=== PATIENT | female | born 1955 | race Caucasian/White ===

== ENCOUNTER 2017-08-26 11:04 | Inpatient (IN) | payer OTHER ==
--- NOTE | 2017-08-26 12:09 | PDOC ---
History of Present Illness - General Chief Complaint: Pain Stated Complaint: ABD PAIN Time Seen by Provider: 08/26/17 12:01 History Source: Patient Exam Limitations: No Limitations - History of Present Illness Initial Comments: 08/26/17 16:17 62M with pmh of lupus, who presents to the ED with abdominal pain and nausea since yesterday. Patient was on a cruise ship up to this morning, where she had a caesar salad yesterday, and began to feel nauseous several hours later. also had some of that salad but isn't sick. She reports diffuse abdominal pain, worse epigastrically. She reports dry heaving, but no vomiting, diarrhea, constipation. Patient has documents from the ship's urgent care, including basic labs and CXR which demonstrated enlarged loop, with 2 air fluid levels. At the time patient was given Toradol, Tylenol, and fluids, with improvement of symptoms. Past History - Past Medical History Allergies/Adverse Reactions: Allergies Allergy/AdvReac Type Severity Reaction Status Date / Time chlorpheniramine Allergy Verified 08/26/17 11:11 [From Ornade] fish derived Allergy Verified 08/26/17 11:11 morphine Allergy Verified 08/26/17 11:11 Penicillins Allergy Verified 08/26/17 11:11 phenylpropanolamine Allergy Verified 08/26/17 11:11 [From Ornade] Sulfa (Sulfonamide Allergy Verified 08/26/17 11:11 Antibiotics) sulfamethoxazole Allergy Verified 08/26/17 11:11 [From Bactrim] trimethoprim [From Bactrim] Allergy Verified 08/26/17 11:11 Home Medications: Ambulatory Orders Hydroxychloroquine Sulfate [Plaquenil] 100 mg PO BID 08/26/17 Metformin HCl 850 mg PO BID 08/26/17 Montelukast Sodium [Singulair] 10 mg PO HS 08/26/17 COPD: No Diabetes: Yes Other medical history: S.C LUPUS, DJD,OA - Surgical History Abdominal Surgery: Yes (MESH) Appendectomy: Yes Cholecystectomy: Yes - Suicide/Smoking/Psychosocial Hx Smoking History: Never smoked Information on smoking cessation initiated: No Hx Alcohol Use: No Drug/Substance Use Hx: No Substance Use Type: None Review of Systems - Review of Systems Able to Perform ROS?: Yes Is the patient limited Welsh proficient: No Constitutional: Yes: See HPI HEENTM: No: Symptoms Reported Respiratory: No: Symptoms reported Cardiac (ROS): No: Symptoms Reported ABD/GI: Yes: See HPI : No: Symptoms Reported Musculoskeletal: No: Symptoms Reported Integumentary: No: Symptoms Reported Neurological: No: Symptoms reported All Other Systems: Reviewed and Negative *Physical Exam - Vital Signs Last Vital Signs Temp Pulse Resp BP Pulse Ox 98.2 F 64 18 126/71 100 08/26/17 11:11 08/26/17 11:11 08/26/17 11:11 08/26/17 11:11 08/26/17 11:11 - Physical Exam General Appearance: Yes: Nourished, Appropriately Dressed. No: Apparent Distress HEENT: positive: EOMI, MARIA DE JESUS, Normal ENT Inspection Respiratory/Chest: positive: Lungs Clear, Normal Breath Sounds. negative: Chest Tender, Respiratory Distress Cardiovascular: positive: Regular Rhythm, Regular Rate, S1, S2 Gastrointestinal/Abdominal: positive: Tender (epigastrium, paraumbilicus), Soft , Decreased BS Musculoskeletal: positive: Normal Inspection. negative: CVA Tenderness Extremity: positive: Normal Capillary Refill, Normal Inspection, Normal Range of Motion Integumentary: positive: Normal Color, Dry, Warm Neurologic: positive: Fully Oriented, Alert, Normal Mood/Affect ED Treatment Course - LABORATORY CBC & Chemistry Diagram: 08/26/17 12:34 08/26/17 12:34 Medical Decision Making - Medical Decision Making 08/26/17 16:49 62M with pmh of lupus, who presents to the ED with abdominal pain and nausea since yesterday. Basic labs negative, CT abdomen with PO and IV contrast. 08/26/17 16:53 CT Abdomen read: A distal small bowel obstruction is noted with an apparent transition zone within the right lower quadrant. There is associated small amount of mesenteric fluid accumulation as well as a small amount of perihepatic free fluid. A small amount of localized areas seen interposed between the left hepatic lobe and anterior abdominal wall probably representing a bowel loop, and less likely a small localized area of pneumoperitoneum. If clinically indicated supplemental CT evaluation may be performed with the patient in a decubitus position (without additional intravenous/oral contrast) to definitively distinguish between these possibilities on a radiologic basis. Surgical mesh is seen along the anterior abdominal wall centered along the midline. A moderate hiatal hernia is noted which appears to be paraesophageal in type. When the patient's clinical condition permits correlation with an upper gastrointestinal series is suggested. Status post cholecystectomy. There is slight common bile duct dilatation which may be on a physiologic basis. Clinical/laboratory correlation is suggested. Status post hysterectomy. A nonspecific 0.8 cm right hepatic lobe hypodense focus is seen. If prior studies are not available at a different facility for direct comparison correlation with contrast-enhanced MRI is suggested versus 3 month follow-up MRI/CT. 2 cm duodenal diverticulum.. Patient updated. Placed call to surgeon global position system technician Dr. COLEMAN. 08/26/17 17:53 Patient to be admitted to hospitalist to med/surg. . 08/26/17 18:05 Still no call back from Dr. Coleman. Will try a second time now 08/26/17 18:[address] Coleman sent. 08/26/17 19:11 Patient signed out to Dr. Null *DC/Admit/Observation/Transfer Diagnosis at time of Disposition: Small bowel obstruction - Discharge Dispostion Admit: Yes - Referrals - Patient Instructions - Post Discharge Activity
[2017-08-26] MEDS ORDERED: SODIUM CHLORIDE 1,000 ML IV STA (12:30)
[2017-08-26] MEDS ORDERED: ONDANSETRON 4 MG/2 ML VIAL IVPUSH ONE (12:56)
[2017-08-26] MEDS ORDERED: FAMOTIDINE IV 20 MG/12 ML VIAL IVPUSH ONE (12:57)
[2017-08-26] MEDS ORDERED: FAMOTIDINE 20 MG/50 ML IVPB 20 MG/50 ML MG IVPB ONE (13:07)
[2017-08-26] MEDS ORDERED: ONDANSETRON 4 MG/2 ML VIAL ONE (13:07)
--- NOTE | 2017-08-26 13:08 | PDOC ---
Attending Attestation - HPI HPI: 08/26/17 13:08 The patient is a 62 year old female, with a significant past medical history of lupus, who presents to the emergency department with abdominal pain and nausea since yesterday. The patient reports she was on a cruise yesterday, where she had a caesar salad, and began to feel nauseous several hours later. Patient reports her had the same salad, but was feeling ok. She reports diffuse abdominal pain, worse epigastrically. She reports dry heaving, but no vomiting, diarrhea, constipation. On the cruise, patient reports she had an X- Ray done, which demonstrated enlarged loop, with 2 air fluid levels. At the time patient was given Toradol, Tylenol, and fluids, with improvement of symptoms. Allergies: Per nursing notes. Past surgical History: Hernia repairs, Cholecystectomy - Physicial Exam PE: 08/26/17 13:09 GENERAL: Awake, alert, and fully oriented, in no acute distress HEAD: No signs of trauma EYES: PERRLA, EOMI, sclera anicteric, conjunctiva clear ENT: Auricles normal inspection, hearing grossly normal, nares patent. Moist mucosa NECK: Normal ROM, supple, no lymphadenopathy, JVD, or masses LUNGS: Breath sounds equal, clear to auscultation bilaterally. No wheezes, and no crackles HEART: Regular rate and rhythm, normal S1 and S2, no murmurs, rubs or gallops ABDOMEN: Mild diffuse tenderness to palpation, tenderness worse epigastrically. Soft, normoactive bowel sounds. No guarding, no rebound. No masses EXTREMITIES: Normal range of motion, no edema. No clubbing or cyanosis. No cords, erythema, or tenderness. DP/PT pulses 2+ and symmetric. NEUROLOGICAL: Moves all extremities. Normal speech, normal gait SKIN: Warm, Dry, normal turgor, no rashes or lesions noted. - Medical Decision Making 08/26/17 13:09 Documentation prepared by Jimy Ovalle, acting as medical manager for Belinda Bhatia MD. <Jimy Ovalle - Last Filed: 08/26/17 16:53> - Resident Resident Name: Albert Jimenez - ED Attending Attestation I have performed the following: I have examined & evaluated the patient, The case was reviewed & discussed with the resident, I agree w/resident's findings & plan - Medical Decision Making 08/26/17 17:22 62 yo F with abd pain nausea, and vomiting following cruise, concerns for air fluid levels on xray from cruise, prior abd surgeries. differential viral ge, food poisoning. sbo, other infection such as uti or pyelonephritis. plan ivf, ct a/p labs ua pain control ivf pt ct with bowel obstruction, ng tube placed. consulted. will admit for sbo. <Belinda Bhatia - Last Filed: 08/26/17 19:25> Heart Score/ECG Review #1 General ECG Interpretation: Sinus Rhythm, Normal Rate (sinus bradycardia 53 bpm. Twi III.), Normal Intervals, No acute ischemic changes <Belinda Bhatia - Last Filed: 08/26/17 19:25> ED Treatment Course - LABORATORY CBC & Chemistry Diagram: 08/26/17 12:34 08/26/17 12:34 - ADDITIONAL ORDERS Additional order review: Laboratory Results 08/26/17 08/26/17 08/26/17 13:37 12:57 12:34 Sodium Potassium Chloride Carbon Dioxide Anion Gap BUN Creatinine Creat Clearance w eGFR Random Glucose Lactic Acid 1.9 Calcium Total Bilirubin AST ALT Alkaline Phosphatase Total Protein Albumin Lipase Cancelled Urine Color Yellow Urine Appearance Clear Urine pH 5.0 Ur Specific [place] 1.029 Urine Protein Negative Urine Glucose (UA) 1+ H Urine Ketones 1+ H Urine Blood Negative Urine Nitrite Negative Urine Bilirubin Negative Urine Urobilinogen Negative Ur Leukocyte Esterase Negative 08/26/17 12:34 Sodium 137 Potassium 4.3 Chloride 101 Carbon Dioxide 24 Anion Gap 12 BUN 15 Creatinine 0.7 Creat Clearance w eGFR > 60 Random Glucose 148 H Lactic Acid Calcium 9.3 Total Bilirubin 0.6 AST 19 ALT 19 Alkaline Phosphatase 51 Total Protein 7.3 Albumin 4.2 Lipase 96 Urine Color Urine Appearance Urine pH Ur Specific [place] Urine Protein Urine Glucose (UA) Urine Ketones Urine Blood Urine Nitrite Urine Bilirubin Urine Urobilinogen Ur Leukocyte Esterase 08/26/17 12:34 RBC 4.57 MCV 88.7 MCHC 34.1 RDW 13.1 MPV 8.6 Neutrophils % 90.9 H Lymphocytes % 5.4 L Monocytes % 3.6 L Eosinophils % 0.0 Basophils % 0.1 - RADIOLOGY Radiograph Interpretation: 08/26/17 16:53 EXAM: CT Abdomen and Pelvis INTERPRETED BY: Dr. Guerin REVIEWED BY: Dr. Bhatia IMPRESSION: A distal small bowel obstruction is noted with an apparent transition zone within the right lower quadrant. There is associated small amount of mesenteric fluid accumulation as well as a small amount of perihepatic free fluid. A small amount of localized areas seen interposed between the left hepatic love and anterior abdominal wall probably representing a bowel loop, and less likely a small localized area of pneumperitoneum. If clinically indicated supplemental CT evaluation may be performed with the patient christy decubitus position (without additional intravenous/oral contract) to definitively distinguish between these possibilities on a radiologic basis. Surgical mesh is seen along the anterior abdominal wall centered along the midline. A moderate hiatal hernia is noted which appears to be paraesophageal in type. When the patient's clinical conditiohn permits correlation with an upper gastrointestinal series is suggested. Status post cholecystectomy. There is slight common bile duct dilation which may be on a physiologic basis. Clinical/laboratory correlation is suggested. S/p hysterectomy. A nonspecific 0.8 cm right hepatic lobe hypodense focus is seen. If prior studies are not available at a different facility for direct comparison correlation with contrast-enhanced MRI is suggested versus 3 month follow-up MRI/CT. 2 cm duodenal diverticulum. - Medications Given in the ED: ED Medications Discontinued Medications Generic Name Dose Route Start Last Admin Trade Name Freq PRN Reason Stop Dose Admin Sodium Chloride 1,000 mls @ 1,000 mls/hr 08/26/17 12:30 08/26/17 13:16 Normal Saline - IV 08/26/17 13:29 1,000 mls/hr ASDIR STA Administration Famotidine 20 mg in 12 mls @ 144 mls/hr 08/26/17 12:57 08/26/17 13:17 Pepcid 20 Mg/12 Ml Push IVPUSH 08/26/17 13:01 144 mls/hr ONCE ONE Administration Ketorolac Tromethamine 15 mg 08/26/17 15:25 08/26/17 15:41 Toradol Injection - IVPUSH 08/26/17 15:26 15 mg ONCE ONE Administration Ondansetron HCl 4 mg 08/26/17 12:56 08/26/17 13:16 Zofran Injection IVPUSH 08/26/17 12:57 4 mg ONCE ONE Administration <Ovalle,Giomilsy - Last Filed: 08/26/17 16:53> - LABORATORY CBC & Chemistry Diagram: 08/26/17 12:34 08/26/17 12:34 <Belinda Bhatia - Last Filed: 08/26/17 19:25>
[2017-08-26 13:24] LABS: BASO % 0.1 % (0-2.0); HEMATOCRIT 40.6 % (32.4-45.2); HEMOGLOBIN 13.8 GM/dL (10.7-15.3); LYMPH % 5.4 % (8-40); MCH 30.2 pg (25.7-33.7); MCHC 34.1 g/dl (32.0-36.0); MEAN CELL VOLUME 88.7 fl (80-96); MEAN PLT VOLUME 8.6 fl (7.5-11.1); MONO % 3.6 % (3.8-10.2); NEUT % 90.9 % (42.8-82.8); PLATELET COUNT 234 K/MM3 (134-434); RBC 4.57 M/mm3 (3.60-5.2); RDW 13.1 % (11.6-15.6); WHITE BLOOD COUNT 10.5 K/mm3 (4.0-10.0)
[2017-08-26 13:54] LABS: ALBUMIN 4.2 g/dl (3.4-5.0); ALK PHOS 51 U/L (45-117); ANION GAP 12 (8-16); BILIRUBIN,TOTAL 0.6 mg/dL (0.2-1.0); BLOOD UREA NITROGEN 15 mg/dL (7-18); CALCIUM 9.3 mg/dL (8.5-10.1); CHLORIDE 101 mmol/L (98-107); CO2 24 mmol/L (21-32); CREATININE 0.7 mg/dL (0.55-1.02); GLUCOSE,RANDOM 148 mg/dL (74-106); POTASSIUM 4.3 mmol/L (3.5-5.1); SGOT/AST 19 U/L (15-37); SGPT/ALT 19 U/L (12-78); SODIUM 137 mmol/L (136-145); TOT PROT 7.3 g/dl (6.4-8.2)
[2017-08-26 14:03] LABS: URINE APPEARANCE CLEAR; URINE BILIRUBIN NEGATIVE (<2.0 mg/dL); URINE COLOR YELLOW; URINE GLUCOSE (UA) 1+ (NEGATIVE); URINE KETONE 1+ (NEGATIVE); URINE LEUK ESTERASE NEGATIVE (NEGATIVE); URINE NITRITE NEGATIVE (NEGATIVE); URINE PROTEIN NEGATIVE (NEGATIVE); URINE UROBILINOGEN NEGATIVE mg/dL (0.2-1.0)
[2017-08-26 14:08] LABS: LIPASE 96 U/L (73-393)
[2017-08-26] MEDS ORDERED: METOCLOPRAMIDE HCL INJECTION 10 MG/2 ML VIAL ONE (15:19)
[2017-08-26] MEDS ORDERED: KETOROLAC TROMETHAMINE 15 MG/ML VIAL IVPUSH ONE (15:25)
[2017-08-26] MEDS ORDERED: KETOROLAC TROMETHAMINE 15 MG/ML VIAL ONE (15:31)
--- NOTE | 2017-08-26 18:12 | HP ---
CHIEF COMPLAINT: " Abdominal pain, nausea " PCP: At [place]. HISTORY OF PRESENT ILLNESS: Patient is a 62 year old female presented to the ED with the chief complaint of " Abdominal pain, nausea ". As per the patient, she was on a 5 day cruise to [facility] from [facility]. Last night at around 8:30 pm, 45 mins after she ate dinner ( ribs, mashed potatoes, broccoli), she started having severe abdominal pain, diffusely located, 10/10, cramping in nature, non radiating, associated with nausea and dry heaves. She was seen by the doctor in the ship who did 2 abdominal x-rays, gave her toradol which didn't help. This morning patient landed in [facility] and came to the ED for further evaluation and treatment. Patient had few vomiting episodes in the ED, small in amount, containing water. Denies chest pain, sob, cough, palpitation, headache, LOC, constipation, diarrhoea. Last Bowel movement yesterday. Hasn't passed flatus today. Bladder habit normal. Sleep/Appetite normal prior to her illness. ER course was notable for: (1) Afebrile, hemodynamically stable (2) Abdominal/Pelvis CT: Distal SBO in the RLQ; surgical mesh, moderate hiatal hernia, 0.8 cm hepatic lobe hypodense area. (3) 1L NS, Famotidine, Ketorolac, Zofran, NG tube placed in the ED Recent Travel: Lives in [place], came to [facility] for vacation. PAST MEDICAL HISTORY: Subcutaneous lupus, steroid induced DM, degenerative disc (C3-C5), osteoarthritis, connective tissue disorder, rosacea PAST SURGICAL HISTORY: Cholecystectomy, Bladder suspension surgery, Hernia repair 5 times-last hernia repair was 5 yrs ago , right knee scoped. Social History: Smoking: Denies Alcohol: Occasional, last drink was yesterday. Drugs: Denies Family History: Non contributory Allergies chlorpheniramine [From Ornade] Allergy (Verified 08/26/17 11:11) fish derived Allergy (Verified 08/26/17 11:11) morphine Allergy (Verified 08/26/17 11:11) Penicillins Allergy (Verified 08/26/17 11:11) phenylpropanolamine [From Ornade] Allergy (Verified 08/26/17 11:11) Sulfa (Sulfonamide Antibiotics) Allergy (Verified 08/26/17 11:11) sulfamethoxazole [From Bactrim] Allergy (Verified 08/26/17 11:11) trimethoprim [From Bactrim] Allergy (Verified 08/26/17 11:11) HOME MEDICATIONS: Home Medications Medication Instructions Recorded Hydroxychloroquine Sulfate 100 mg PO BID 08/26/17 [Plaquenil] Metformin HCl 850 mg PO BID 08/26/17 Montelukast Sodium [Singulair] 10 mg PO HS 08/26/17 REVIEW OF SYSTEMS CONSTITUTIONAL: Absent: fever, chills, diaphoresis, generalized weakness, malaise, loss of appetite, weight change HEENT: Absent: rhinorrhea, nasal congestion, throat pain, throat swelling, difficulty swallowing, mouth swelling, ear pain, eye pain, visual changes CARDIOVASCULAR: Absent: chest pain, syncope, palpitations, irregular heart rate, lightheadedness , peripheral edema RESPIRATORY: Absent: cough, shortness of breath, dyspnea with exertion, orthopnea, wheezing, stridor, hemoptysis GASTROINTESTINAL: Present: abdominal pain, abdominal distension, nausea, vomiting, Absent: diarrhea, constipation, melena, hematochezia GENITOURINARY: Absent: dysuria, frequency, urgency, hesitancy, hematuria, flank pain, genital pain MUSCULOSKELETAL: Absent: myalgia, arthralgia, joint swelling, back pain, neck pain SKIN: Absent: rash, itching, pallor HEMATOLOGIC/IMMUNOLOGIC: Absent: easy bleeding, easy bruising, lymphadenopathy, frequent infections ENDOCRINE: Absent: unexplained weight gain, unexplained weight loss, heat intolerance, cold intolerance NEUROLOGIC: Absent: headache, focal weakness or paresthesias, dizziness, unsteady gait, seizure, mental status changes, bladder or bowel incontinence PSYCHIATRIC: Absent: anxiety, depression, suicidal or homicidal ideation, hallucinations. PHYSICAL EXAMINATION Vital Signs - 24 hr 08/26/17 08/26/17 11:11 15:42 Temperature 98.2 F Pulse Rate 64 Pulse Rate [ 56 L Radial] Respiratory 18 22 Rate Blood Pressure 126/71 Blood Pressure 121/82 [Left Arm] O2 Sat by Pulse 100 100 Oximetry (%) GENERAL: Patient is lying comfortably in bed, Awake, alert, and fully oriented, in no acute distress, NG tube placed. HEAD: Normal with no signs of trauma. EYES: EOM intact, no pallor or icterus. EARS, NOSE, THROAT: Ears normal. Dry mucous membranes. NECK: Supple. LUNGS: Breath sounds equal, clear to auscultation bilaterally. No wheezes, and no crackles. No accessory muscle use. HEART: Regular rate and rhythm, normal S1 and S2 without murmur, rub or gallop. ABDOMEN: Soft, tenderness in the LLQ, suprapubic area, not distended, hyperactive bowel sounds, No hepatomegaly or splenomegaly. MUSCULOSKELETAL: Normal range of motion at all joints. No bony deformities or tenderness. No CVA tenderness. UPPER EXTREMITIES: 2+ pulses, warm, well-perfused. No cyanosis. No clubbing. No peripheral edema. LOWER EXTREMITIES: 2+ pulses, warm, well-perfused. No calf tenderness. No peripheral edema. NEUROLOGICAL: NO facial droop, power 5/5 in all extremities. Normal speech. Gait not observed. PSYCHIATRIC: Cooperative. Good eye contact. Appropriate mood and affect. SKIN: Flushed skin +, Warm, dry, normal turgor, no rashes or lesions noted, normal capillary refill. Laboratory Results - last 24 hr 08/26/17 08/26/17 08/26/17 12:34 12:34 12:34 WBC 10.5 H RBC 4.57 Hgb 13.8 Hct 40.6 MCV 88.7 MCH 30.2 MCHC 34.1 RDW 13.1 Plt Count 234 MPV 8.6 Neutrophils % 90.9 H Lymphocytes % 5.4 L Monocytes % 3.6 L Eosinophils % 0.0 Basophils % 0.1 Sodium 137 Potassium 4.3 Chloride 101 Carbon Dioxide 24 Anion Gap 12 BUN 15 Creatinine 0.7 Creat Clearance w eGFR > 60 Random Glucose 148 H Lactic Acid 1.9 Calcium 9.3 Total Bilirubin 0.6 AST 19 ALT 19 Alkaline Phosphatase 51 Total Protein 7.3 Albumin 4.2 Lipase 96 Urine Color Urine Appearance Urine pH Ur Specific [place] Urine Protein Urine Glucose (UA) Urine Ketones Urine Blood Urine Nitrite Urine Bilirubin Urine Urobilinogen Ur Leukocyte Esterase 08/26/17 08/26/17 12:57 13:37 WBC RBC Hgb Hct MCV MCH MCHC RDW Plt Count MPV Neutrophils % Lymphocytes % Monocytes % Eosinophils % Basophils % Sodium Potassium Chloride Carbon Dioxide Anion Gap BUN Creatinine Creat Clearance w eGFR Random Glucose Lactic Acid Calcium Total Bilirubin AST ALT Alkaline Phosphatase Total Protein Albumin Lipase Cancelled Urine Color Yellow Urine Appearance Clear Urine pH 5.0 Ur Specific [place] 1.029 Urine Protein Negative Urine Glucose (UA) 1+ H Urine Ketones 1+ H Urine Blood Negative Urine Nitrite Negative Urine Bilirubin Negative Urine Urobilinogen Negative Ur Leukocyte Esterase Negative ASSESSMENT/PLAN: Patient is a 62 year old female with significant past medical history of multiple abdominal surgeries presented to the ED with the chief complaint of " Abdominal pain, nausea " and was found to have SBO # SBO likely secondary to multiple abdominal surgeries c/o abdominal pain, nausea, dry heaves On arrival, patient was hemodynamically stable. No leukocytosis, normal lactic acid Admitted in Med-Surg/Inpatient NPO NG tube in place drained 150mls so far IV NS @ 100 mls/hr Patient is allergic to Morphine, but tolerated Fentanyl in the ED, but currently no opiates to be given. Will give Ketorolac and IV tylenol PRN for pain control Spoke with Dr. Coleman, will f/up his recommendation- NPO overnight, pain control , NG tube, Abd-xay in the AM. He will see the patient in the morning. # Subcutaneous lupus-not in flare On Hydroxychloroquine 100mg PO BID, will hold as patient is NPO # Asthma-not in exacerbation Hold Montelukast # Steroid induced DM Finger stick glucose monitoring ISS Watch for hypoglycemic episodes HOld Metformin # FEN IV NS @ 100 mls.hr Electrolyes WNL NPO # Prophylaxis For DVT: ON Heparin 5000 IU sq TID For GI: Not indicated # Code Status: Full Code Illness, Investigation and Plan of care explained to the patient and her . They verbalized understanding. Case discussed with Dr. Nair. Visit type - Emergency Visit Emergency Visit: Yes ED Registration Date: 08/26/17 Care time: The patient presented to the Emergency Department on the above date and was hospitalized for further evaluation of their emergent condition. - New Patient This patient is new to me today: Yes Date on this admission: 08/26/17 - Critical Care Critical Care patient: No Hospitalist Screening - Colonoscopy Questionnaire Colonoscopy Questionnaire: Colonoscopy Questionnaire - Patient: 50 - 75 years old and never had a screening colonoscopy: Unknown History of colon or rectal polyps, or CA: Unknown History of IBD, Crohn's disease or UC: Unknown History of abdominal radiation therapy as a child: Unknown - Relative: 1 with colon or rectal CA, or polyps at age 60 or younger: Unknown Colon or rectal CA diagnosed at age 45 or younger: Unknown Multiple relatives with colon or rectal CA: Unknown - Outcome: Screening Result: Negative Screen
[2017-08-26] MEDS: SODIUM CHLORIDE 1,000 ML IV SCH ×2 (18:28→22:00)
[2017-08-26] MEDS ORDERED: KETOROLAC TROMETHAMINE 30 MG/1 ML VIAL IVPUSH PRN (20:20)
--- NOTE | 2017-08-26 20:20 | PDOC ---
*Physical Exam - Vital Signs Last Vital Signs Temp Pulse Resp BP Pulse Ox 98.2 F 60 20 113/58 98 08/26/17 11:11 08/26/17 19:07 08/26/17 19:07 08/26/17 19:07 08/26/17 19:07 08/26/17 20:18 Care endorsed to me by Dr. Jimenez at the end of his shift. Patient just returned from a cruise this morning where she had abdominal pain, nausea, dry heaves. Had air-fluid levels on a KUB taken by the cruise clinic. Here in the ED has SBO apparent on CT; lactate is negative. Dr. Coleman has been consulted and will see the patient. Patient has been admitted to [facility] already. ED Treatment Course - LABORATORY CBC & Chemistry Diagram: 08/31/17 07:45 08/31/17 21:50 - ADDITIONAL ORDERS Additional order review: Laboratory Results 08/26/17 08/26/17 08/26/17 13:37 12:57 12:34 Sodium Potassium Chloride Carbon Dioxide Anion Gap BUN Creatinine Creat Clearance w eGFR Random Glucose Lactic Acid 1.9 Calcium Total Bilirubin AST ALT Alkaline Phosphatase Total Protein Albumin Lipase Cancelled Urine Color Yellow Urine Appearance Clear Urine pH 5.0 Ur Specific [place] 1.029 Urine Protein Negative Urine Glucose (UA) 1+ H Urine Ketones 1+ H Urine Blood Negative Urine Nitrite Negative Urine Bilirubin Negative Urine Urobilinogen Negative Ur Leukocyte Esterase Negative 08/26/17 12:34 Sodium 137 Potassium 4.3 Chloride 101 Carbon Dioxide 24 Anion Gap 12 BUN 15 Creatinine 0.7 Creat Clearance w eGFR > 60 Random Glucose 148 H Lactic Acid Calcium 9.3 Total Bilirubin 0.6 AST 19 ALT 19 Alkaline Phosphatase 51 Total Protein 7.3 Albumin 4.2 Lipase 96 Urine Color Urine Appearance Urine pH Ur Specific [place] Urine Protein Urine Glucose (UA) Urine Ketones Urine Blood Urine Nitrite Urine Bilirubin Urine Urobilinogen Ur Leukocyte Esterase 08/26/17 12:34 RBC 4.57 MCV 88.7 MCHC 34.1 RDW 13.1 MPV 8.6 Neutrophils % 90.9 H Lymphocytes % 5.4 L Monocytes % 3.6 L Eosinophils % 0.0 Basophils % 0.1 - Medications Given in the ED: ED Medications Discontinued Medications Generic Name Dose Route Start Last Admin Trade Name Freq PRN Reason Stop Dose Admin Fentanyl 50 mcg 08/26/17 17:56 08/26/17 18:22 Sublimaze Injection - IVPUSH 08/26/17 17:57 50 mcg ONCE ONE Administration Sodium Chloride 1,000 mls @ 1,000 mls/hr 08/26/17 12:30 08/26/17 13:16 Normal Saline - IV 08/26/17 13:29 1,000 mls/hr ASDIR STA Administration Famotidine 20 mg in 12 mls @ 144 mls/hr 08/26/17 12:57 08/26/17 13:17 Pepcid 20 Mg/12 Ml Push IVPUSH 08/26/17 13:01 144 mls/hr ONCE ONE Administration Ketorolac Tromethamine 15 mg 08/26/17 15:25 08/26/17 15:41 Toradol Injection - IVPUSH 08/26/17 15:26 15 mg ONCE ONE Administration Ondansetron HCl 4 mg 08/26/17 12:56 08/26/17 13:16 Zofran Injection IVPUSH 08/26/17 12:57 4 mg ONCE ONE Administration *DC/Admit/Observation/Transfer Diagnosis at time of Disposition: Small bowel obstruction - Discharge Dispostion Condition at time of disposition: Guarded Decision to Admit order: Yes - Referrals - Patient Instructions - Post Discharge Activity
--- NOTE | 2017-08-26 21:20 | PN ---
Teaching Attending Note Name of Resident: Umm De Los Santos ATTENDING PHYSICIAN STATEMENT I saw and evaluated the patient. Chart, data reviewed. I reviewed the resident's note and discussed the case with the resident. I agree with the resident's findings and plan as documented. SUBJECTIVE: 62 year old woman with SLE, multiple abdominal surgeries (including bladder elevation for incontinence, hernia repair with anterior wall mesh placement- last surgery 5 years ago) originally from [place], visiting family in [place], returned from cruise in [facility] yesterday. Yesteday night she developed sudden abdominal pain associated with nausea and vomiting. She was eating dinner on ship- ribs, mashed potatoes, brocolli. Last BM was yesterday. She is not passing gas currently. Patient rates her abdominal pain as 6/[address] of abdomen/ pelvis performed in ER which showed SBO. Dr. Burroughs- surgery on site coordinator was contacted and is aware of case. Patient has morphine allergy but tolerated fentanyl push in ER. OBJECTIVE: Last Vital Signs Temp Pulse Resp BP Pulse Ox 98.2 F 60 20 113/58 97 08/26/17 11:11 08/26/17 19:07 08/26/17 19:07 08/26/17 19:07 08/26/17 20:40 general- appears to be in discomfort heent at, moist oral mucosa, ng tube in place neck- supple cv-s1+s2+rrr chest- cta b/l abdomen- mild distention, decreased bowel sounds SKin- rash on cheeks b/l and upper chest -chronic rash as per patient, unchanged from baseline Abnormal Lab Results 08/26/17 08/26/17 08/26/17 12:34 12:34 13:37 WBC 10.5 H Neutrophils % 90.9 H Lymphocytes % 5.4 L Monocytes % 3.6 L Random Glucose 148 H Urine Glucose (UA) 1+ H Urine Ketones 1+ H CT of abdomen and pelvis- reviewed, found to have small bowel obtruction, distended bowel loops. ASSESSMENT AND PLAN: #62yo woman with small bowel obstruction. Lactate is normal. Surgery on site coordinator was contacted and is aware of case and CT findings. -admit to med/surg -NPO -bowel rest -NG tube with intermittent suction -avoid narcotics and anticholinergics as they can worsen ileus -toradol prn and IV tylenol PRN for pain control -correct any electrolyte abnormalities -surgery consult -abdominal xray in am #SLE - controlled -hold plaquenil for now as patient is npo -heparin sc for dvt prophylaxis
[2017-08-26] MEDS: ACETAMINOPHEN 1000 MG/100 ML VIAL (NON FORMULARY) IVPB PRN (22:17)
[2017-08-26] MEDS: INSULIN SLIDING SCALE (NOVOLOG) 1 VIAL SQ SCH (22:27)
--- NOTE | 2017-08-26 22:34 | CONSULT ---
Consult Consult Specialty:: Surgery Reason for Consultation:: Abdominal pain, intestinal obstruction. - History of Present Illness Chief Complaint: Abdominal pain since yesterday night, while on a cruise ship, afre eating salad. Pain in epigastrium., associated with nausea. - History Source History Provided By: Patient Limitations to Obtaining History: No Limitations - Alcohol/Substance Use Hx Alcohol Use: No - Smoking History Smoking history: Never smoked Home Medications - Allergies Allergies/Adverse Reactions: Allergies Allergy/AdvReac Type Severity Reaction Status Date / Time chlorpheniramine Allergy Verified 08/26/17 11:11 [From Ornade] fish derived Allergy Verified 08/26/17 11:11 morphine Allergy Verified 08/26/17 11:11 Penicillins Allergy Verified 08/26/17 11:11 phenylpropanolamine Allergy Verified 08/26/17 11:11 [From Ornade] Sulfa (Sulfonamide Allergy Verified 08/26/17 11:11 Antibiotics) sulfamethoxazole Allergy Verified 08/26/17 11:11 [From Bactrim] trimethoprim [From Bactrim] Allergy Verified 08/26/17 11:11 - Home Medications Home Medications: Ambulatory Orders Hydroxychloroquine Sulfate [Plaquenil] 100 mg PO BID 08/26/17 Metformin HCl 850 mg PO BID 08/26/17 Montelukast Sodium [Singulair] 10 mg PO HS 08/26/17 Physical Exam Vital Signs: Vital Signs Temperature 98.2 F 08/26/17 11:11 Pulse Rate 60 08/26/17 19:07 Respiratory Rate 20 08/26/17 19:07 Blood Pressure 113/58 08/26/17 19:07 O2 Sat by Pulse Oximetry (%) 97 08/26/17 20:40 Gastrointestinal: Yes: Distention (Upper abdominal distrntion. soft, not tender , no guarfing , no rigidity.) Labs: CBC, BMP 08/26/17 12:34 08/26/17 12:34 Imaging - Results X-ray: Report Reviewed, Image Reviewed (Intestinal obstruction, of small bowel, ? secondary to adhesions.) Cat Scan: Report Reviewed, Image Reviewed Problem List - Problems (1) Small bowel obstruction Code(s): K56.609 - UNSP INTESTNL OBST, UNSP TO PARTIAL VERSUS COMPLETE OBST (2) Abdominal pain Code(s): R10.9 - UNSPECIFIED ABDOMINAL PAIN Qualifiers: Abdominal location: lower abdomen, unspecified Qualified Code(s): R10.30 - Lower abdominal pain, unspecified Assessment/Plan Intestinal obstruction. plan: Hydrate, iv fluids, ng tube to wall suction. follow up abdominal X ray Will follow. Patient and her were explained of the findings, and management by nasogastric aspiration, IV fluids, follow up abdominal X-Ray, blood count. If she does not improve , will need laparotomy. Patient and her have been explained.
[2017-08-26 23:21] VITALS: BMI 30.9
[2017-08-27] MEDS: SODIUM CHLORIDE 1,000 ML IV SCH ×5 (00:47→22:51)
[2017-08-27] MEDS: ACETAMINOPHEN 1000 MG/100 ML VIAL (NON FORMULARY) IVPB PRN ×3 (03:51→21:05)
[2017-08-27] MEDS: INSULIN SLIDING SCALE (NOVOLOG) 1 VIAL SQ SCH ×4 (06:21→21:44)
[2017-08-27] MEDS: HEPARIN NA (PORCINE) 5,000 UNITS/ML 1ML VIAL SQ SCH ×3 (06:21→21:40)
[2017-08-27 07:53] LABS: BASO % 0.4 % (0-2.0); EOS % 0.3 % (0-4.5); HEMATOCRIT 39.6 % (32.4-45.2); HEMOGLOBIN 13.5 GM/dL (10.7-15.3); LYMPH % 12.8 % (8-40); MCH 30.3 pg (25.7-33.7); MONO % 7.8 % (3.8-10.2); NEUT % 78.7 % (42.8-82.8); PLATELET COUNT 220 K/MM3 (134-434); RBC 4.45 M/mm3 (3.60-5.2); RDW 13.2 % (11.6-15.6); WHITE BLOOD COUNT 8.7 K/mm3 (4.0-10.0)
[2017-08-27 07:58] LABS: INR 1.02 (0.82-1.09); PROTHROMBIN TIME (PATIENT) 11.5 SEC (9.7-13.0)
[2017-08-27 08:48] LABS: ANION GAP 10 (8-16); BLOOD UREA NITROGEN 11 mg/dL (7-18); CALCIUM 8.4 mg/dL (8.5-10.1); CHLORIDE 108 mmol/L (98-107); CO2 21 mmol/L (21-32); CREATININE 0.5 mg/dL (0.55-1.02); GLUCOSE,RANDOM 119 mg/dL (74-106); POTASSIUM 3.8 mmol/L (3.5-5.1); SODIUM 139 mmol/L (136-145)
--- NOTE | 2017-08-27 09:34 | EKG ---
Test Reason : Blood Pressure : / mmHG Vent. Rate : 053 BPM Atrial Rate : 053 BPM P-R Int : 134 ms QRS Dur : 096 ms QT Int : 476 ms P-R-T Axes : 028 -23 011 degrees QTc Int : 446 ms SINUS BRADYCARDIA LOW VOLTAGE QRS NONSPECIFIC T WAVE ABNORMALITY ABNORMAL ECG NO PREVIOUS ECGS AVAILABLE Confirmed by ISRAEL COLLAZO MD ([id number]) on 08/27/2017 9:34:11 AM Referred By: Confirmed By:ISRAEL COLLAZO MD
--- NOTE | 2017-08-27 16:04 | PN ---
Teaching Attending Note Name of Resident: Jaquan Leo ATTENDING PHYSICIAN STATEMENT I saw and evaluated the patient. I reviewed the resident's note and discussed the case with the resident. I agree with the resident's findings and plan as documented. SUBJECTIVE: No fever or chills. Abd pain is better after adjusting NG position . no flatus yet. OBJECTIVE: NAD, NGT in . MMM. erythematous thick rash on face and neck Cv: RRR. no MRG. Lungs : CTAB Ext: no edema Abd: soft, minimally distended. tympanic , no BS heard . minimal TTP ASSESSMENT AND PLAN: 62 y/o lady with h/o cutaneous lupus , and few abdominal surgeries who presented with abd pain , N/V and was found to have SBO 1- SBO : likely due to adhesions . sx improved after NGT placement. - cont NGT - follow KUB. - sx if not able to resolve medically - NPO - IVF - monitor electrolytes. - zofran for nause. Qtc 449 2- h/o cutaneous lupus. hold plaquenil DVT px
[2017-08-27] MEDS: KETOROLAC TROMETHAMINE 30 MG/1 ML VIAL IVPUSH PRN ×2 (16:25→22:51)
--- NOTE | 2017-08-27 18:33 | PN ---
Physical Exam: SUBJECTIVE: Patient seen and examined at bedside. Patient's symptoms improved after placement of NGT. OBJECTIVE: Vital Signs Period Temp Pulse Resp BP Sys/Okvacs Pulse Ox Last 24 Hr 98 F-98.6 F 53-70 17-20 100-131/58-77 97-98 GENERAL: The patient is awake, alert, and fully oriented, in no acute distress. HEAD: Normal with no signs of trauma. NECK: Trachea midline, full range of motion, supple. LUNGS: Breath sounds equal, clear to auscultation bilaterally, no wheezes, no crackles, no accessory muscle use. HEART: Regular rate and rhythm, S1, S2 without murmur, rub or gallop. ABDOMEN: Soft, mild tenderness to palpation, nondistended, normoactive bowel sounds, no guarding, no rebound, no hepatosplenomegaly, no masses. NGT in place draining feculent fluid. EXTREMITIES: 2+ pulses, warm, well-perfused, no edema. NEUROLOGICAL: Cranial nerves II through X grossly intact. Normal speech, gait not observed. PSYCH: Normal mood, normal affect. SKIN: Warm, dry, normal turgor, no rashes or lesions noted Laboratory Results - last 24 hr 08/26/17 08/27/17 08/27/17 22:25 05:49 06:45 WBC RBC Hgb Hct MCV MCH MCHC RDW Plt Count MPV Neutrophils % Lymphocytes % Monocytes % Eosinophils % Basophils % PT with INR INR Sodium 139 Potassium 3.8 Chloride 108 H Carbon Dioxide 21 Anion Gap 10 BUN 11 Creatinine 0.5 L POC Glucometer 154 127 Random Glucose 119 H Lactic Acid Calcium 8.4 L Blood Type Antibody Screen 08/27/17 08/27/17 08/27/17 07:00 07:00 07:00 WBC 8.7 RBC 4.45 Hgb 13.5 Hct 39.6 MCV 89.0 MCH 30.3 MCHC 34.0 RDW 13.2 Plt Count 220 MPV 9.0 Neutrophils % 78.7 Lymphocytes % 12.8 D Monocytes % 7.8 D Eosinophils % 0.3 D Basophils % 0.4 D PT with INR 11.50 INR 1.02 Sodium Potassium Chloride Carbon Dioxide Anion Gap BUN Creatinine POC Glucometer Random Glucose Lactic Acid 0.9 Calcium Blood Type Antibody Screen 08/27/17 08/27/17 08/27/17 07:00 09:15 11:02 WBC RBC Hgb Hct MCV MCH MCHC RDW Plt Count MPV Neutrophils % Lymphocytes % Monocytes % Eosinophils % Basophils % PT with INR INR Sodium Potassium Chloride Carbon Dioxide Anion Gap BUN Creatinine POC Glucometer 111 Random Glucose Lactic Acid Calcium Blood Type O POSITIVE O POSITIVE Antibody Screen Negative 08/27/17 16:33 WBC RBC Hgb Hct MCV MCH MCHC RDW Plt Count MPV Neutrophils % Lymphocytes % Monocytes % Eosinophils % Basophils % PT with INR INR Sodium Potassium Chloride Carbon Dioxide Anion Gap BUN Creatinine POC Glucometer 102 Random Glucose Lactic Acid Calcium Blood Type Antibody Screen Active Medications Generic Name Dose Route Start Last Admin Trade Name Freq PRN Reason Stop Dose Admin Acetaminophen 1,000 mg 08/26/17 20:21 08/27/17 11:57 Ofirmev Injection - IVPB 1,000 mg Q6H PRN Administration PAIN LEVEL 7 - 10 Heparin Sodium (Porcine) 5,000 unit 08/27/17 06:00 08/27/17 15:18 Heparin - SQ 5,000 unit TID TAMMY Administration Sodium Chloride 1,000 mls @ 100 mls/hr 08/26/17 18:15 08/27/17 12:03 Normal Saline - IV 100 mls/hr ASDIR TAMMY Administration Sodium Chloride 1,000 mls @ 100 mls/hr 08/26/17 19:30 08/27/17 00:47 Normal Saline - IV Not Given ASDIR TAMMY Insulin Aspart 1 vial 08/26/17 22:00 08/27/17 16:35 Novolog Vial Sliding Scale - SQ Not Given ACHS TAMMY Protocol Ketorolac Tromethamine 30 mg 08/27/17 16:13 08/27/17 16:25 Toradol Injection - IVPUSH 08/31/17 20:19 30 mg Q6H PRN Administration PAIN LEVEL 4 - 6 Ondansetron HCl 4 mg 08/27/17 13:57 Zofran Injection IVPUSH Q6H PRN NAUSEA ASSESSMENT/PLAN: The patient is a 62 year old female w/PMH multiple abdominal surgeries and subcutaneous lupus who is admitted for SBO. #SBO likely 2/2 multiple abdominal surgeries -NPO -NGT to suction -NS @ 100 -Pain control with Toradol 30mg Q6H -Zofran 4mg Q6h #Subcutaneous lupus -holding home medications until patient able to tolerate PO #Asthma -Hold PO asthma meds #FEN -NS@100 -monitor lytes -NPO #Prophylaxis -Hep 5ku SQ TID #dispo -admit to med surg Visit type - Emergency Visit Emergency Visit: Yes ED Registration Date: 08/26/17 Care time: The patient presented to the Emergency Department on the above date and was hospitalized for further evaluation of their emergent condition. - New Patient This patient is new to me today: Yes Date on this admission: 08/27/17 - Critical Care Critical Care patient: No
[2017-08-28] MEDS: ONDANSETRON 4 MG/2 ML VIAL IVPUSH PRN ×4 (01:12→22:05)
[2017-08-28] MEDS: KETOROLAC TROMETHAMINE 30 MG/1 ML VIAL IVPUSH PRN ×3 (05:23→18:02)
[2017-08-28] MEDS: HEPARIN NA (PORCINE) 5,000 UNITS/ML 1ML VIAL SQ SCH ×3 (06:20→21:27)
[2017-08-28] MEDS: INSULIN SLIDING SCALE (NOVOLOG) 1 VIAL SQ SCH ×4 (06:21→21:26)
[2017-08-28 07:59] LABS: HEMATOCRIT 41.2 % (32.4-45.2); MCH 30.5 pg (25.7-33.7); MCHC 33.9 g/dl (32.0-36.0); MEAN CELL VOLUME 89.8 fl (80-96); MEAN PLT VOLUME 8.9 fl (7.5-11.1); PLATELET COUNT 202 K/MM3 (134-434); RBC 4.59 M/mm3 (3.60-5.2); RDW 13.2 % (11.6-15.6); WHITE BLOOD COUNT 6.9 K/mm3 (4.0-10.0)
[2017-08-28 08:03] LABS: CHLORIDE 107 mmol/L (98-107); POTASSIUM 3.8 mmol/L (3.5-5.1); SODIUM 142 mmol/L (136-145)
[2017-08-28 08:09] LABS: ANION GAP 16 (8-16); BLOOD UREA NITROGEN 17 mg/dL (7-18); CALCIUM 8.3 mg/dL (8.5-10.1); CO2 19 mmol/L (21-32); CREATININE 0.4 mg/dL (0.55-1.02); GLUCOSE,RANDOM 113 mg/dL (74-106); MAGNESIUM 1.9 mg/dL (1.8-2.4); PHOSPHOROUS 3.5 mg/dL (2.5-4.9)
[2017-08-28] MEDS: SODIUM CHLORIDE 1,000 ML IV SCH ×2 (09:01→21:26)
--- NOTE | 2017-08-28 12:05 | PN ---
Teaching Attending Note Name of Resident: Jaquan Leo ATTENDING PHYSICIAN STATEMENT I saw and evaluated the patient. I reviewed the resident's note and discussed the case with the resident. I agree with the resident's findings and plan as documented. SUBJECTIVE: No fever or chills . had a lot of pain last night and the NGT was leaking . Abd pain is slightly better today . did not pass gas OBJECTIVE: NAD, NGT in with green fluid being suctioned . MMM. erythematous raised scaly rash on face and neck Cv: RRR. no MRG. Lungs : CTAB Ext: no edema Abd: soft, distended especially in upper abd. tympanic, minimal TTP . hypoactive BS. ASSESSMENT AND PLAN: 62 y/o lady with h/o cutaneous lupus , and few abdominal surgeries who presented with abd pain , N/V and was found to have SBO 1- SBO : likely due to adhesions . - KUB with continued distention with no change form before. - AG is higher today and bicarb is low, concerning for AG metabolic acidosis . - check stat lactic and repeat BMP. if lactic acidosis present , then concern for bowel ischemia nad will notify sx - cont NGT and IVF and monitor electrolytes 2- h/o cutaneous lupus. DVT px
--- NOTE | 2017-08-28 12:05 | PN ---
Progress Note, Physician - Current Medication List Current Medications: Active Medications Heparin Sodium (Porcine) (Heparin -) 5,000 unit SQ TID [facility] Last Admin: 08/28/17 06:20 Dose: 5,000 unit Sodium Chloride (Normal Saline -) 1,000 mls @ 100 mls/hr IV ASDIR [facility] Last Admin: 08/28/17 09:01 Dose: 100 mls/hr Sodium Chloride (Normal Saline -) 1,000 mls @ 100 mls/hr IV ASDIR [facility] Last Admin: 08/27/17 21:09 Dose: Not Given Insulin Aspart (Novolog Vial Sliding Scale -) 1 vial SQ ACHS [facility] PRN Reason: Protocol Last Admin: 08/28/17 11:02 Dose: Not Given Ketorolac Tromethamine (Toradol Injection -) 30 mg IVPUSH Q6H PRN PRN Reason: PAIN LEVEL 4 - 6 Stop: 08/31/17 20:19 Last Admin: 08/28/17 11:39 Dose: 30 mg Ondansetron HCl (Zofran Injection) 4 mg IVPUSH Q6H PRN PRN Reason: NAUSEA Last Admin: 08/28/17 08:11 Dose: 4 mg - Objective Vital Signs: Vital Signs Temperature 97.7 F 08/28/17 10:00 Pulse Rate 83 08/28/17 10:00 Respiratory Rate 18 08/28/17 10:00 Blood Pressure 139/67 08/28/17 10:00 O2 Sat by Pulse Oximetry (%) 95 08/28/17 09:00 Labs: CBC, BMP 08/28/17 06:00 08/28/17 06:00 INR, PTT INR 1.02 (0.82-1.09) 08/27/17 07:00 Problem List - Problems (1) Small bowel obstruction Code(s): K56.609 - UNSP INTESTNL OBST, UNSP TO PARTIAL VERSUS COMPLETE OBST (2) Abdominal pain Code(s): R10.9 - UNSPECIFIED ABDOMINAL PAIN Qualifiers: Qualified Code(s): R10.30 - Lower abdominal pain, unspecified Assessment/Plan Surgery: Patient still in pain , but feels better than yesterday. gastric drainage is 1300 ml. bilious. Abdpmen soft , mildlt tender , not focal. No guarding , no rebound. Abdominal X-ray shows persistent small intestinal obstruction. Patient and her have been informed of the findings and need for surgery if not improved. Continue nasogastric aspiration , IV hydration , follow up abdominal X-ray in am.
--- NOTE | 2017-08-28 13:59 | PN ---
Physical Exam: SUBJECTIVE: Patient seen and examined at bedside. patient endorses abdominal pain and nausea overnight which has now resolved. currently pain free. OBJECTIVE: Vital Signs Period Temp Pulse Resp BP Sys/Kovacs Pulse Ox Last 24 Hr 97.7 F-98.5 F 68-83 18-20 125-139/67-77 95-95 GENERAL: The patient is awake, alert, and fully oriented, in no acute distress. HEAD: Normal with no signs of trauma. NECK: Trachea midline, full range of motion, supple. LUNGS: Breath sounds equal, clear to auscultation bilaterally, no wheezes, no crackles, no accessory muscle use. HEART: Regular rate and rhythm, S1, S2 without murmur, rub or gallop. ABDOMEN: Soft, mild tenderness to palpation, moderate distension, normoactive bowel sounds, no guarding, no rebound, no hepatosplenomegaly, no masses. NGT in place draining feculent fluid. EXTREMITIES: 2+ pulses, warm, well-perfused, no edema. NEUROLOGICAL: Cranial nerves II through X grossly intact. Normal speech, gait not observed. PSYCH: Normal mood, normal affect. SKIN: Warm, dry, normal turgor, no rashes or lesions noted Laboratory Results - last 24 hr 08/27/17 08/27/17 08/28/17 16:33 21:38 06:00 WBC 6.9 RBC 4.59 Hgb 14.0 Hct 41.2 MCV 89.8 MCH 30.5 MCHC 33.9 RDW 13.2 Plt Count 202 MPV 8.9 Sodium Potassium Chloride Carbon Dioxide Anion Gap BUN Creatinine POC Glucometer 102 117 Random Glucose Calcium Phosphorus Magnesium 08/28/17 08/28/17 08/28/17 06:00 06:19 10:56 WBC RBC Hgb Hct MCV MCH MCHC RDW Plt Count MPV Sodium 142 Potassium 3.8 Chloride 107 Carbon Dioxide 19 L Anion Gap 16 BUN 17 Creatinine 0.4 L POC Glucometer 110 105 Random Glucose 113 H Calcium 8.3 L Phosphorus 3.5 Magnesium 1.9 Active Medications Generic Name Dose Route Start Last Admin Trade Name Freq PRN Reason Stop Dose Admin Heparin Sodium (Porcine) 5,000 unit 08/27/17 06:00 08/28/17 13:22 Heparin - SQ 5,000 unit TID TAMMY Administration Sodium Chloride 1,000 mls @ 100 mls/hr 08/26/17 19:30 08/27/17 21:09 Normal Saline - IV Not Given ASDIR [facility] Insulin Aspart 1 vial 08/26/17 22:00 08/28/17 11:02 Novolog Vial Sliding Scale - SQ Not Given ACHS [facility] Protocol Ketorolac Tromethamine 30 mg 08/27/17 16:13 08/28/17 11:39 Toradol Injection - IVPUSH 08/31/17 20:19 30 mg Q6H PRN Administration PAIN LEVEL 4 - 6 Ondansetron HCl 4 mg 08/27/17 13:57 08/28/17 08:11 Zofran Injection IVPUSH 4 mg Q6H PRN Administration NAUSEA ASSESSMENT/PLAN: The patient is a 62 year old female w/PMH multiple abdominal surgeries and subcutaneous lupus who is admitted for SBO. #SBO likely 2/2 multiple abdominal surgeries -NPO -RPT KUB unchanged -NGT to suction -NS @ 100 -Pain control with Toradol 30mg Q6H -Zofran 4mg Q6h #Subcutaneous lupus -holding home medications until patient able to tolerate PO #Asthma -Hold PO asthma meds #FEN -NS@100 -monitor lytes -NPO #Prophylaxis -Hep 5ku SQ TID #dispo -admit to med surg Visit type - Emergency Visit Emergency Visit: Yes ED Registration Date: 08/26/17 Care time: The patient presented to the Emergency Department on the above date and was hospitalized for further evaluation of their emergent condition. - New Patient This patient is new to me today: No - Critical Care Critical Care patient: No
[2017-08-28 14:12] LABS: ANION GAP 15 (8-16); BLOOD UREA NITROGEN 20 mg/dL (7-18); CALCIUM 8.6 mg/dL (8.5-10.1); CHLORIDE 105 mmol/L (98-107); CO2 22 mmol/L (21-32); CREATININE 0.6 mg/dL (0.55-1.02); GLUCOSE,RANDOM 108 mg/dL (74-106); POTASSIUM 3.7 mmol/L (3.5-5.1); SODIUM 142 mmol/L (136-145)
--- NOTE | 2017-08-28 14:38 | EKG ---
Test Reason : Blood Pressure : / mmHG Vent. Rate : 064 BPM Atrial Rate : 064 BPM P-R Int : 126 ms QRS Dur : 096 ms QT Int : 466 ms P-R-T Axes : 019 -27 011 degrees QTc Int : 480 ms SINUS RHYTHM WITH OCCASIONAL PREMATURE VENTRICULAR COMPLEXES CANNOT RULE OUT ANTERIOR INFARCT , AGE UNDETERMINED ABNORMAL ECG WHEN COMPARED WITH ECG OF 26-AUG-2017 18:42, PREMATURE VENTRICULAR COMPLEXES ARE NOW PRESENT Confirmed by MD Leon, Pan ([id number]) on 08/28/2017 2:38:03 PM Referred By: STEPHANIE IBARRA DR Confirmed By:Pan Quintero MD
[2017-08-28] MEDS ORDERED: INSULIN (NOVOLOG) ASPART 100 UNITS/ML 10ML VIAL ONE (20:33)
[2017-08-29] MEDS: KETOROLAC TROMETHAMINE 30 MG/1 ML VIAL IVPUSH PRN ×2 (00:31→06:10)
[2017-08-29] MEDS: INSULIN SLIDING SCALE (NOVOLOG) 1 VIAL SQ SCH ×4 (06:02→21:36)
[2017-08-29] MEDS: HEPARIN NA (PORCINE) 5,000 UNITS/ML 1ML VIAL SQ SCH ×3 (06:02→22:08)
[2017-08-29] MEDS: SODIUM CHLORIDE 1,000 ML IV SCH (06:10)
[2017-08-29 07:28] LABS: BASO % 0.4 % (0-2.0); EOS % 0.8 % (0-4.5); HEMOGLOBIN 13.2 GM/dL (10.7-15.3); LYMPH % 14.1 % (8-40); MCH 30.5 pg (25.7-33.7); MCHC 33.9 g/dl (32.0-36.0); MEAN PLT VOLUME 8.7 fl (7.5-11.1); NEUT % 74.7 % (42.8-82.8); PLATELET COUNT 215 K/MM3 (134-434); RBC 4.33 M/mm3 (3.60-5.2); RDW 12.8 % (11.6-15.6); WHITE BLOOD COUNT 5.8 K/mm3 (4.0-10.0)
[2017-08-29 08:01] LABS: ALBUMIN 2.9 g/dl (3.4-5.0); ANION GAP 14 (8-16); BLOOD UREA NITROGEN 22 mg/dL (7-18); CALCIUM 8.3 mg/dL (8.5-10.1); CHLORIDE 108 mmol/L (98-107); CO2 21 mmol/L (21-32); POTASSIUM 3.6 mmol/L (3.5-5.1); SODIUM 143 mmol/L (136-145)
[2017-08-29 08:06] LABS: ALK PHOS 37 U/L (45-117); BILIRUBIN,TOTAL 0.7 mg/dL (0.2-1.0); CREATININE 0.5 mg/dL (0.55-1.02); GLUCOSE,RANDOM 105 mg/dL (74-106); SGOT/AST 14 U/L (15-37); SGPT/ALT 15 U/L (12-78); TOT PROT 5.5 g/dl (6.4-8.2)
[2017-08-29] MEDS: ONDANSETRON 4 MG/2 ML VIAL IVPUSH PRN (09:56)
[2017-08-29] MEDS ORDERED: PROMETHAZINE HCL 25 MG/1 ML VIAL IVPUSH PRN (11:17)
[2017-08-29] MEDS ORDERED: ONDANSETRON 4 MG/2 ML VIAL IVPUSH PRN ×3 (11:17→14:47)
[2017-08-29] MEDS ORDERED: LACTATED RINGERS SOLUTION 1,000 ML IV SCH (11:30)
[2017-08-29] MEDS ORDERED: PROPOFOL 20 ML ONE (12:02)
[2017-08-29] MEDS ORDERED: MIDAZOLAM HCL 2 MG/2 ML SINGLE DOSE VIAL ONE (12:02)
[2017-08-29] MEDS ORDERED: ROCURONIUM BROMIDE 50 MG/5 ML VIAL ONE (12:02)
[2017-08-29] MEDS ORDERED: LIDOCAINE HCL/PF 2% SDV 5ML VIAL ONE (12:03)
[2017-08-29] MEDS ORDERED: SODIUM CHLORIDE 0.9% P/F 10 ML VIAL IJ ONE (12:37)
[2017-08-29] MEDS ORDERED: ERTAPENEM SODIUM 1 GM VIAL ONE (12:37)
[2017-08-29] MEDS ORDERED: DEXAMETHASONE SOD PHOSPHATE 4 MG/1 ML VIAL ONE (12:37)
[2017-08-29] MEDS ORDERED: ERTAPENEM SODIUM 1 GM VIAL IVPB ONE (12:38)
[2017-08-29] MEDS ORDERED: NEOSTIGMINE METHYLSULFATE 0.5 MG/ML - 10 ML MDV ONE (13:05)
[2017-08-29] MEDS ORDERED: GLYCOPYRROLATE 0.2 MG/1 ML VIAL ONE (13:05)
[2017-08-29] MEDS ORDERED: PROMETHAZINE HCL 25 MG/1 ML VIAL IVPB PRN (13:34)
--- NOTE | 2017-08-29 13:34 | OP ---
Operative Note - Note: Operative Date: 08/29/17 Pre-Operative Diagnosis: Intestinal obstruction, H/O abdominal wall hernia repair x 5. Operation: Exploratory laparotomy, lysis of adhesions, release of intestinal obstruction, and repair of abdominal wall. Findings: Intestinal obstruction , secondary to adhesive band across the distal small intestine. Complete intestinal obstruction. Post-Operative Diagnosis: Same as Pre-op Surgeon: Meron Coleman Shale Miner: Jose Vyas Anesthesiologist/BLEACHER PULP: Cory Munoz Anesthesia: General Estimated Blood Loss (mls): 50 Operative Report Dictated: Yes
[2017-08-29] MEDS ORDERED: HYDROmorphone *PCA* 10MG/50ML DISP.SYRIN PCA SCH (13:45)
[2017-08-29] MEDS ORDERED: HYDROmorphone *PCA* 10MG/50ML DISP.SYRIN PCA ONE (14:28)
[2017-08-29] MEDS: HYDROmorphone *PCA* 10MG/50ML DISP.SYRIN PCA SCH ×3 (14:30→15:36)
[2017-08-29] MEDS ORDERED: KETOROLAC TROMETHAMINE 30 MG/1 ML VIAL IVPUSH PRN (14:47)
[2017-08-29] MEDS: LACTATED RINGERS SOLUTION 1,000 ML IV SCH ×2 (15:35→22:25)
--- NOTE | 2017-08-29 16:13 | PN ---
Progress Note (short form) - Note Progress Note: Subjective: seen around 11 am . complained of persistent Abd pain. no nausea . no flatus Objective: Vital Signs: Last Vital Signs Temp Pulse Resp BP Pulse Ox 98.8 F 69 18 107/55 98 08/29/17 15:00 08/29/17 15:00 08/29/17 15:00 08/29/17 15:00 08/29/17 15:00 Physical Exam: NAD, NGT in with green fluid being suctioned. MMM. erythematous raised scaly rash on face and neck Cv: RRR. no MRG. Lungs : CTAB Ext: no edema Abd: distended especially in upper abd. tympanic, minimal TTP . No BS today ASSESSMENT AND PLAN: 62 y/o lady with h/o cutaneous lupus , and few abdominal surgeries who presented with abd pain , N/V and was found to have SBO 1-SBO : likely due to adhesions . KUB with no change - d/w Dr. Vizcarra. for adhesion lysis and exploration today - cont IVf and monitor electrolytes 2- h/o cutaneous lupus. DVT px Visit type - Emergency Visit Emergency Visit: Yes ED Registration Date: 08/26/17 Care time: The patient presented to the Emergency Department on the above date and was hospitalized for further evaluation of their emergent condition. - New Patient This patient is new to me today: No - Critical Care Critical Care patient: No
[2017-08-30] MEDS: INSULIN SLIDING SCALE (NOVOLOG) 1 VIAL SQ SCH ×2 (06:01→11:15)
[2017-08-30 08:04] LABS: HEMATOCRIT 34.8 % (32.4-45.2); HEMOGLOBIN 11.9 GM/dL (10.7-15.3); MCH 30.8 pg (25.7-33.7); MCHC 34.3 g/dl (32.0-36.0); MEAN CELL VOLUME 89.6 fl (80-96); MEAN PLT VOLUME 8.5 fl (7.5-11.1); PLATELET COUNT 230 K/MM3 (134-434); RBC 3.88 M/mm3 (3.60-5.2); RDW 13.2 % (11.6-15.6); WHITE BLOOD COUNT 6.4 K/mm3 (4.0-10.0)
[2017-08-30 08:38] LABS: ALBUMIN 2.7 g/dl (3.4-5.0); ALK PHOS 33 U/L (45-117); ANION GAP 14 (8-16); BILIRUBIN,TOTAL 0.5 mg/dL (0.2-1.0); BLOOD UREA NITROGEN 15 mg/dL (7-18); CALCIUM 8.3 mg/dL (8.5-10.1); CHLORIDE 110 mmol/L (98-107); CO2 20 mmol/L (21-32); CREATININE 0.5 mg/dL (0.55-1.02); GLUCOSE,RANDOM 126 mg/dL (74-106); SGPT/ALT 13 U/L (12-78); SODIUM 144 mmol/L (136-145); TOT PROT 5.2 g/dl (6.4-8.2)
[2017-08-30 08:39] LABS: POTASSIUM 4.2 mmol/L (3.5-5.1); SGOT/AST 17 U/L (15-37)
--- NOTE | 2017-08-30 08:46 | PN ---
Progress Note (short form) - Note Progress Note: Anesthesia post op note and AUTO PORTER follow up. POD#1 S/P expl. lap for SBO. Pat seen and examined. VSS, Ambulating. NG tube in place. Pain score 4/10. Will comtinue AUTO PORTER dilaudid untill she tolerates op.
[2017-08-30] MEDS: HEPARIN NA (PORCINE) 5,000 UNITS/ML 1ML VIAL SQ SCH ×2 (09:22→21:09)
--- NOTE | 2017-08-30 10:46 | OP ---
DATE OF OPERATION: 08/29/2017 PREOPERATIVE DIAGNOSES: Intestinal obstruction, history of abdominal wall repair x5. POSTOPERATIVE DIAGNOSES: Intestinal obstruction secondary to adhesive band and status post abdominal wall repair with mesh. OPERATIVE PROCEDURE: Exploratory laparotomy, lysis of adhesions with release of intestinal obstruction, and repair of abdominal wall. SURGEON: Jacqui Sykes MD ADVERTISING MATERIAL DISTRIBUTOR: Jose Vyas MD ANESTHESIA: General anesthesia by Cory Munoz MD OPERATIVE DESCRIPTION: This 62-year-old woman was admitted 3 days ago. with abdominal pain, nausea and vomiting, while [place] cruise ship. She was admitted, diagnosed with intestinal obstruction, with dilated small bowel, and collapse distal to the obstruction. The patient was treated with nasogastric aspiration, intravenous fluids for the last 3 days, with no relief of the intestinal obstruction. Persistent obstruction was seen on abdominal x-ray. Patient was brought in for laparotomy. Consent was obtained. Patient had had multiple operations for abdominal wall hernia in the past, with the use of mesh. The patient was brought to the operating room. General anesthesia was administered. Timeout was called. The abdomen was opened through an upper midline incision, extending down, and around the umbilicus, to just below the umbilicus. This was deepened through the skin and subcutaneous tissue. Deeper to that, there was a mesh repair that was identified. This was then divided in the midline all the way from above the umbilicus, close to the xiphoid, to below the umbilicus. Upon entering the abdominal cavity, there were dilated loops of small bowel. This was then exteriorized,out of the abdomen, when an area ofobstruction was found, in the right lower quadrant of the abdomen, in the distal small bowel. There was an adhesive band extending across a loop of small intestine. This was then released. There was a significant induration and constriction over the mesentery of the small bowel, secondary to compression from the adhesive band. The small intestine distal to the band was also completely collapsed with dilatation proximal to it. Once this was released, the constriction was relieved, and the intestinal obstruction was relieved as well. There was significant clear fluid within the peritoneal cavity of about 2 L. This was aspirated. There was no evidence of ischemia of the bowel or the mesentery. The rest of the bowel was then returned to the abdominal cavity. Small intestine was run through the ligament of Treitz to the ileocecal valve. The cecum, ascending colon, transverse colon were normal. Once this was done, the abdomen was closed. The previous repair was again repaired. The mesh of the anterior abdominal wall was then approximated and run with continuous number 1 looped PDS sutures thus repairingb the defect of the abdominal wall. The mesh was then covered , by approximating the subcutaneous fat, and fascia, over the length of the mesh throughout the length of the incision. Thus the abdominal defect was restored and repaired. The skin was approximated with neal. The wound was thoroughly irrigated with 3 L of normal saline. Estimated blood loss was about 50 mL. Sponge count, instrument count were correct. The patient was extubated and returned to recovery room in satisfactory and stable condition. JACQUI SYKES M.D. [id number] MTDD
--- NOTE | 2017-08-30 11:20 | PN ---
Progress Note, Physician - Current Medication List Current Medications: Active Medications Diphenhydramine HCl (Benadryl Injection -) 12.5 mg IVPUSH ONCE PRN PRN Reason: FOR ITCHING Heparin Sodium (Porcine) (Heparin -) 5,000 unit SQ BID [facility] Last Admin: 08/30/17 09:22 Dose: 5,000 unit Hydromorphone HCl (Dilaudid Light Cleaner -) 0 mg NET SOFTWARE DEVELOPER NET SOFTWARE DEVELOPER [facility] PRN Reason: Protocol Stop: 09/05/17 13:34 Last Admin: 08/29/17 14:30 Dose: Not Given Lactated Ringer's (Lactated Ringers Solution) 1,000 mls @ 125 mls/hr IV ASDIR [facility] Last Admin: 08/29/17 22:25 Dose: 125 mls/hr Insulin Aspart (Novolog Vial Sliding Scale -) 1 vial SQ ACHS [facility] PRN Reason: Protocol Last Admin: 08/30/17 11:15 Dose: Not Given Ketorolac Tromethamine (Toradol Injection -) 30 mg IVPUSH Q6H PRN PRN Reason: PAIN LEVEL 4 - 6 Stop: 08/31/17 20:19 Ondansetron HCl (Zofran Injection) 4 mg IVPUSH Q6H PRN PRN Reason: NAUSEA Last Admin: 08/29/17 15:36 Dose: 4 mg - Objective Vital Signs: Vital Signs Temperature 97.4 F L 08/30/17 05:25 Pulse Rate 71 08/30/17 10:30 Respiratory Rate 20 08/30/17 10:30 Blood Pressure 109/45 08/30/17 10:30 O2 Sat by Pulse Oximetry (%) 99 08/30/17 09:00 Labs: CBC, BMP 08/30/17 07:00 08/30/17 06:25 INR, PTT INR 1.02 (0.82-1.09) 08/27/17 07:00 Problem List - Problems (1) Small bowel obstruction Code(s): K56.609 - UNSP INTESTNL OBST, UNSP TO PARTIAL VERSUS COMPLETE OBST (2) Abdominal pain Code(s): R10.9 - UNSPECIFIED ABDOMINAL PAIN Qualifiers: Abdominal location: lower abdomen, unspecified Qualified Code(s): R10.30 - Lower abdominal pain, unspecified Assessment/Plan Post operative day # 1. She is alert, ambulating. Abdominal wound is clean. Has no pain. Gastric drainage is reduced. Will keep NG tube for another day. Hydrate.
[2017-08-30] MEDS: LACTATED RINGERS SOLUTION 1,000 ML IV SCH ×3 (13:32→22:23)
[2017-08-30] MEDS ORDERED: HYDROmorphone *PCA* 10MG/50ML DISP.SYRIN PCA ONE (15:05)
[2017-08-30] MEDS: HYDROmorphone *PCA* 10MG/50ML DISP.SYRIN PCA SCH (15:21)
--- NOTE | 2017-08-30 15:44 | PN ---
Teaching Attending Note Name of Resident: Valdez Heath ATTENDING PHYSICIAN STATEMENT I saw and evaluated the patient. I reviewed the resident's note and discussed the case with the resident. I agree with the resident's findings and plan as documented. SUBJECTIVE: pain in abd is much better. No fever or chills. no N/V OBJECTIVE: NAD, NGT in with light green fluid Cv: RRR. no MRG. Lungs : CTAB Ext: no edema Abd: less distended than before , clean dressing over surgical wound. hypoactive BS. minimal TTP over abd wall ASSESSMENT AND PLAN: 62 y/o lady with h/o cutaneous lupus , and few abdominal surgeries who presented with abd pain , N/V and was found to have SBO 1-SBO :due to adhesions. POD 1 s/p adhesions lysis - cont IVF - monitor electrolytes - possible removal of NGT tomorrow - possible DC of TUMBLER DYEING MACHINE OPERATOR tomorrow DVT px
[2017-08-30] MEDS ORDERED: PROCHLORPERAZINE INJECTION 10 MG/2 ML VIAL IVPB PRN (15:45)
--- NOTE | 2017-08-30 16:23 | PN ---
Physical Exam: SUBJECTIVE: Patient seen and examined at bedside. Overnight, pt NGT draining yellow-brown serous fluid. Pt used BUSINESS OFFICE TECHNOLOGY INSTRUCTOR pump 7x (to admin total of 1.4mg overnight). According to pt, her abdominal pain is worse with movement (8/10), at rest, using BUSINESS OFFICE TECHNOLOGY INSTRUCTOR pump it is a 6/10. Today, pt denies nausea, emesis, chest pain or SOB. States that she her "stomach is growling," however she has not yet passed flatus. She has been OOB. OBJECTIVE: Vital Signs Period Temp Pulse Resp BP Sys/Kovacs Pulse Ox Last 24 Hr 97.4 F-98.5 F 61-84 18-20 96-130/42-73 95-99 GENERAL: The patient is awake, alert, and fully oriented, in no acute distress. With NGT HEAD: Normal with no signs of trauma. +erythematous rash -malar EYES: PERRL, extraocular movements intact, sclera anicteric, conjunctiva clear. No ptosis. ENT: Ears normal, nares patent, oropharynx clear without exudates, moist mucous membranes. +NGT- with yellow/brown serous d/c NECK: Trachea midline, supple. LUNGS: Breath sounds equal, clear to auscultation bilaterally, no wheezes, no crackles, no accessory muscle use. HEART: Regular rate and rhythm, S1, S2 without murmur, rub or gallop. ABDOMEN: Soft, obese,nondistended, normoactive bowel sounds. +diffusely TTP in epigastric region. clean incision, without erythema or edema. EXTREMITIES: 2+ posterior tibial pulses, warm, well-perfused, no edema. NEUROLOGICAL: Cranial nerves II through XII grossly intact. Normal speech. Motor strength 4/5 upper and lower extremities. PSYCH: Normal mood, normal affect. SKIN: Warm, dry, normal turgor, no rashes or lesions noted Laboratory Results - last 24 hr 08/30/17 08/30/17 08/30/17 05:43 06:25 07:00 WBC 6.4 RBC 3.88 Hgb 11.9 Hct 34.8 MCV 89.6 MCH 30.8 MCHC 34.3 RDW 13.2 Plt Count 230 MPV 8.5 Sodium 144 Potassium 4.2 Chloride 110 H Carbon Dioxide 20 L Anion Gap 14 BUN 15 Creatinine 0.5 L Creat Clearance w eGFR > 60 POC Glucometer 120 Random Glucose 126 H Calcium 8.3 L Total Bilirubin 0.5 D AST 17 ALT 13 Alkaline Phosphatase 33 L Total Protein 5.2 L Albumin 2.7 L Crossmatch IS Only Active Medications Generic Name Dose Route Start Last Admin Trade Name Freq PRN Reason Stop Dose Admin Diphenhydramine HCl 12.5 mg 08/29/17 14:47 Benadryl Injection - IVPUSH ONCE PRN FOR ITCHING Heparin Sodium (Porcine) 5,000 unit 08/29/17 22:00 08/30/17 09:22 Heparin - SQ 5,000 unit BID TAMMY Administration Hydromorphone HCl 0 mg 08/29/17 14:47 08/30/17 15:21 Dilaudid Psych Therapist - BUSINESS OFFICE TECHNOLOGY INSTRUCTOR 09/05/17 13:34 10 mg BUSINESS OFFICE TECHNOLOGY INSTRUCTOR TAMMY Administration Protocol Lactated Ringer's 1,000 mls @ 125 mls/hr 08/29/17 14:47 08/30/17 15:23 Lactated Ringers Solution IV Not Given ASD[facility] Ketorolac Tromethamine 30 mg 08/29/17 14:47 Toradol Injection - IVPUSH 08/31/17 20:19 Q6H PRN PAIN LEVEL 4 - 6 Prochlorperazine Edisylate 5 mg 08/30/17 15:45 Compazine Injection - IVPB Q8H PRN NAUSEA AND/OR VOMITING ASSESSMENT/PLAN: 62 y/o F with hx cutaneous lupus, abdominal surgeries, who presented with abdominal pain and nausea. Pt admitted for SBO. #SBO likely 2/2 adhesions from past abdominal surgeries (cholecystectomy, bladder suspension surgery, hernia repair)-improving -s/p ex lap, lysis of adhesions, release of intestinal obstruction, repair of abdom wall - PO Day 1 -IV LR 125 cc/hr -Pain control - BUSINESS OFFICE TECHNOLOGY INSTRUCTOR pump, toradol 30mg IVP q6h PRN breakthrough pain -Nausea- avoid zofran as Qtc prolonged (480) - use compazine 5mg IVPB q8h PRN -May be able to d/c BUSINESS OFFICE TECHNOLOGY INSTRUCTOR once pt passes flatus, and advance diet/ start bowel regimen -As per surgery recs, NGT for another day -Encourage OOB -chest physiotherapy BID #h/o cutaneous lupus -holding home meds as pt still NPO -at home hydroxychloroquine 100mg PO BID #asthma- controlled -holding home meds (singulair 10mg PO qHS) #F/E/N IV LR 125 cc/hr Continue to monitor lytes NPO; NGT still in place #PPX DVT: early ambulation #Dispo -continued monitoring on med-surg; post-op care Visit type - Emergency Visit Emergency Visit: No - New Patient This patient is new to me today: Yes Date on this admission: 08/30/17 - Critical Care Critical Care patient: No
[2017-08-30] MEDS ORDERED: PT OWN MED DRAWER 7, Y5N ONE (17:24)
[2017-08-31] MEDS: LACTATED RINGERS SOLUTION 1,000 ML IV SCH (06:08)
[2017-08-31 08:46] LABS: BASO % 0.5 % (0-2.0); EOS % 1.4 % (0-4.5); HEMATOCRIT 32.8 % (32.4-45.2); HEMOGLOBIN 11.3 GM/dL (10.7-15.3); LYMPH % 14.8 % (8-40); MCHC 34.4 g/dl (32.0-36.0); MEAN PLT VOLUME 8.6 fl (7.5-11.1); MONO % 7.5 % (3.8-10.2); NEUT % 75.8 % (42.8-82.8); PLATELET COUNT 180 K/MM3 (134-434); RBC 3.65 M/mm3 (3.60-5.2); RDW 12.8 % (11.6-15.6); WHITE BLOOD COUNT 5.8 K/mm3 (4.0-10.0)
[2017-08-31 09:13] LABS: ANION GAP 11 (8-16); BLOOD UREA NITROGEN 8 mg/dL (7-18); CALCIUM 7.8 mg/dL (8.5-10.1); CHLORIDE 105 mmol/L (98-107); CO2 24 mmol/L (21-32); GLUCOSE,RANDOM 86 mg/dL (74-106); POTASSIUM 3.2 mmol/L (3.5-5.1); SODIUM 140 mmol/L (136-145)
[2017-08-31 09:15] LABS: CREATININE 0.3 mg/dL (0.55-1.02)
[2017-08-31] MEDS: HEPARIN NA (PORCINE) 5,000 UNITS/ML 1ML VIAL SQ SCH ×2 (09:57→22:39)
--- NOTE | 2017-08-31 13:25 | PN ---
Physical Exam: SUBJECTIVE: Patient seen and examined at bedside. Overnight, pt with pain on movement when OOB. As per pt, her abdominal pain is much improved. She used her JUNIOR DATABASE ADMINISTRATOR pump once yesterday at 3pm, and accidentally hit the button while she was sleeping at midnight. She has not required toradol. This AM, NGT disconnected by nursing and reconnected with green drainage. Pt with small amounts of flatus , and mild increase in appetite compared to yesterday. Denies RICKS, fever, chills , SOB, or chest pain. OBJECTIVE: Vital Signs Period Temp Pulse Resp BP Sys/Kovacs Pulse Ox Last 24 Hr 97.3 F-98.6 F 67-84 18-20 100-115/42-81 97 GENERAL: The patient is in good spirits. Awake, alert, and fully oriented, in no acute distress. HEAD: +erythematous facial rash - malar EYES: PERRL, extraocular movements intact, sclera anicteric, conjunctiva clear. ENT: Ears normal, nares patent, oropharynx clear without exudates, moist mucous membranes. NECK: Trachea midline, supple. LUNGS: Breath sounds equal, clear to auscultation bilaterally, no wheezes, no crackles, no accessory muscle use. HEART: Regular rate and rhythm, S1, S2 without murmur, rub or gallop. ABDOMEN: Soft, obese, nontender, nondistended,, no guarding, no rebound. + intact neal over surgical site, without erythema or edema. EXTREMITIES: 2+ posterior tibial pulses, warm, well-perfused, no edema. NEUROLOGICAL: Cranial nerves II through XII grossly intact. Normal speech PSYCH: Positive mood, normal affect. SKIN: Warm, dry, normal turgor. +erythematous facial rash Laboratory Results - last 24 hr 08/31/17 08/31/17 07:45 07:45 WBC 5.8 RBC 3.65 Hgb 11.3 Hct 32.8 MCV 90.0 MCH 31.0 MCHC 34.4 RDW 12.8 Plt Count 180 D MPV 8.6 Neutrophils % 75.8 Lymphocytes % 14.8 Monocytes % 7.5 Eosinophils % 1.4 Basophils % 0.5 Sodium 140 Potassium 3.2 L Chloride 105 Carbon Dioxide 24 Anion Gap 11 BUN 8 Creatinine 0.3 L Random Glucose 86 Calcium 7.8 L Active Medications Generic Name Dose Route Start Last Admin Trade Name Freq PRN Reason Stop Dose Admin Diphenhydramine HCl 12.5 mg 08/29/17 14:47 Benadryl Injection - IVPUSH ONCE PRN FOR ITCHING Heparin Sodium (Porcine) 5,000 unit 08/29/17 22:00 08/31/17 09:57 Heparin - SQ 5,000 unit BID TAMMY Administration Hydromorphone HCl 0 mg 08/29/17 14:47 08/30/17 15:21 Dilaudid Wallpaper Cleaner - JUNIOR DATABASE ADMINISTRATOR 09/05/17 13:34 10 mg JUNIOR DATABASE ADMINISTRATOR TAMMY Administration Protocol Lactated Ringer's 1,000 mls @ 125 mls/hr 08/29/17 14:47 08/31/17 06:08 Lactated Ringers Solution IV 125 mls/hr ASDIR TAMMY Administration Potassium Chloride 10 meq in 100 mls @ 100 mls/hr 08/31/17 13:15 Potassium Chloride 10 Meq Premix Ivpb - IVPB 08/31/17 16:14 Q60M TAMMY Ketorolac Tromethamine 30 mg 08/29/17 14:47 Toradol Injection - IVPUSH 08/31/17 20:19 Q6H PRN PAIN LEVEL 4 - 6 Prochlorperazine Edisylate 5 mg 08/30/17 15:45 Compazine Injection - IVPB Q8H PRN NAUSEA AND/OR VOMITING ASSESSMENT/PLAN: 62 y/o F with hx cutaneous lupus, abdominal surgeries, who presented with abdominal pain and nausea. Pt admitted for SBO. #SBO likely 2/2 adhesions from past abdominal surgeries (cholecystectomy, bladder suspension surgery, hernia repair)-improving -s/p ex lap, lysis of adhesions, release of intestinal obstruction, repair of abdom wall - PO Day 2 -IV LR 125 cc/hr -Pain control - JUNIOR DATABASE ADMINISTRATOR pump has been d/c as pt not requiring. Toradol 30mg IVP q6h PRN, dilaudid 1mg IVPB q6h PRN -however dilaudid on back order. percocet q4h PRN. -Nausea- avoid zofran as Qtc prolonged (480) - use compazine 5mg IVPB q8h PRN -Will await surgical recs concerning NGT -Encourage OOB -chest physiotherapy BID #h/o cutaneous lupus -worsening erythematous facial rash, however w/o complaint -holding home meds as pt still NPO -at home hydroxychloroquine 100mg PO BID #asthma- controlled -holding home meds (singulair 10mg PO qHS) #hypokalemia -currently receiving KCl riters x 3 10mEq -will continue to follow level #F/E/N IV LR 125 cc/hr Continue to monitor lytes NPO with ice chips; NGT still in place #PPX DVT: hep SQ 5000 BID #Dispo -continued monitoring on med-surg; post-op care Visit type - Emergency Visit Emergency Visit: No - New Patient This patient is new to me today: No - Critical Care Critical Care patient: No
--- NOTE | 2017-08-31 13:52 | EKG ---
Test Reason : Blood Pressure : / mmHG Vent. Rate : 067 BPM Atrial Rate : 067 BPM P-R Int : 120 ms QRS Dur : 098 ms QT Int : 420 ms P-R-T Axes : 014 -26 016 degrees QTc Int : 443 ms NORMAL SINUS RHYTHM CANNOT RULE OUT ANTERIOR INFARCT (CITED ON OR BEFORE 27-AUG-2017) ABNORMAL ECG WHEN COMPARED WITH ECG OF 27-AUG-2017 09:23, PREMATURE VENTRICULAR COMPLEXES ARE NO LONGER PRESENT Confirmed by MD Ольга, Roberto ([id number] on 08/31/2017 1:52:29 PM Referred By: REBECCA TREVIÑO Confirmed By:Roberto Rolon MD
[2017-08-31] MEDS ORDERED: PT OWN MED DRAWER 7, Y5N ONE (14:24)
[2017-08-31] MEDS: POTASSIUM CHLORIDE 10 MEQ in SODIUM CHLORIDE 100 ML IVPB SCH ×2 (14:34→16:03)
--- NOTE | 2017-08-31 15:17 | PN ---
Progress Note (short form) - Note Progress Note: POD #1 - s/p exploratory laparotomy/lysis of adhesions. On ANIMATION CAMERA OPERATOR for postop pain management. VSS. Pt. doing well, resting comfortably in bed. Pt. states she feels great and states she has not been using the ANIMATION CAMERA OPERATOR. Pt. not taking po currently except for ice chips/water. Will discontinue ANIMATION CAMERA OPERATOR and order prn dilaudid IV.
[2017-08-31] MEDS ORDERED: HYDROmorphone HCL CARPU-JECT 1 MG/1 ML DISP.SYRIN IVPB PRN (15:20)
[2017-08-31] MEDS ORDERED: KETOROLAC TROMETHAMINE 30 MG/1 ML VIAL IVPUSH PRN (15:30)
[2017-08-31] MEDS ORDERED: oxyCODONE/APAP 1 EACH - MUST ORDER COMBO PRODUCT NR PRN (16:10)
[2017-08-31] MEDS ORDERED: LACTATED RINGERS SOLUTION 1,000 ML IV SCH (16:11)
--- NOTE | 2017-08-31 16:17 | PN ---
Teaching Attending Note Name of Resident: Sofy Jay ATTENDING PHYSICIAN STATEMENT I saw and evaluated the patient. I reviewed the resident's note and discussed the case with the resident. I agree with the resident's findings and plan as documented. SUBJECTIVE: No fever or chills. Ambulating. No N/V. minimal abd pain OBJECTIVE: NAD, NGT in Cv: RRR. no MRG. Lungs : CTAB Ext: no edema Abd: slighlty distended , clean dressing over surgical wound. hypoactive BS. minimal TTP over abd wall ASSESSMENT AND PLAN: 62 y/o lady with h/o cutaneous lupus , and few abdominal surgeries who presented with abd pain , N/V and was found to have SBO 1-SBO :due to adhesions. POD 2 s/p adhesions lysis - IVF - monitor electrolytes and replete as needed - possible removal of NGT today - off WOOD SCIENCE PROFESSOR. allergic to morphine, dilaudid not available per pharmacy . will add toradol and percocet DVT px
[2017-08-31] MEDS ORDERED: oxyCODONE HCL 5 MG TABLET PO PRN (17:10)
[2017-08-31] MEDS ORDERED: ACETAMINOPHEN 325 MG TABLET (FP) PO PRN (17:10)
--- NOTE | 2017-08-31 20:40 | PN ---
Progress Note, Physician - Current Medication List Current Medications: Active Medications Acetaminophen (Tylenol -) 325 mg NR Q4H PRN PRN Reason: PAIN 1-6 Diphenhydramine HCl (Benadryl Injection -) 12.5 mg IVPUSH ONCE PRN PRN Reason: FOR ITCHING Heparin Sodium (Porcine) (Heparin -) 5,000 unit SQ BID [facility] Last Admin: 08/31/17 09:57 Dose: 5,000 unit Lactated Ringer's (Lactated Ringers Solution) 1,000 mls @ 100 mls/hr IV ASDIR [facility] Last Admin: 08/31/17 16:45 Dose: 100 mls/hr Ketorolac Tromethamine (Toradol Injection -) 30 mg IVPUSH Q6H PRN PRN Reason: PAIN LEVEL 7 - 10 Stop: 09/02/17 15:29 Oxycodone HCl (Roxicodone -) 5 mg PO Q4H PRN PRN Reason: PAIN 1-6 Prochlorperazine Edisylate (Compazine Injection -) 5 mg IVPB Q8H PRN PRN Reason: NAUSEA AND/OR VOMITING - Objective Vital Signs: Vital Signs Temperature 98.1 F 08/31/17 17:53 Pulse Rate 76 08/31/17 14:48 Respiratory Rate 18 08/31/17 14:48 Blood Pressure 108/59 08/31/17 14:48 O2 Sat by Pulse Oximetry (%) 97 08/31/17 09:00 Labs: CBC, BMP 08/31/17 07:45 08/31/17 07:45 INR, PTT INR 1.02 (0.82-1.09) 08/27/17 07:00 Problem List - Problems (1) Small bowel obstruction Code(s): K56.609 - UNSP INTESTNL OBST, UNSP TO PARTIAL VERSUS COMPLETE OBST (2) Abdominal pain Code(s): R10.9 - UNSPECIFIED ABDOMINAL PAIN Qualifiers: Abdominal location: lower abdomen, unspecified Qualified Code(s): R10.30 - Lower abdominal pain, unspecified Assessment/Plan Patient is comfortable, not in pain, has passed some flatus. She has been ambulating. WBC is normal Wound is clean an Plan : D/C ng tube in am, and resume clear water. Progressing well.
[2017-08-31] MEDS ORDERED: ACETAMINOPHEN 325 MG TABLET (FP) NR PRN (21:10)
[2017-08-31 23:14] LABS: ANION GAP 13 (8-16); BLOOD UREA NITROGEN 5 mg/dL (7-18); CALCIUM 7.8 mg/dL (8.5-10.1); CHLORIDE 103 mmol/L (98-107); CO2 22 mmol/L (21-32); CREATININE 0.2 mg/dL (0.55-1.02); GLUCOSE,RANDOM 77 mg/dL (74-106); POTASSIUM 3.2 mmol/L (3.5-5.1); SODIUM 138 mmol/L (136-145)
--- NOTE | 2017-09-01 08:48 | PN ---
Physical Exam: SUBJECTIVE: Patient seen and examined at bedside. Overnight, pt with LUE tenderness during IV K+ infusion. For this reason, infusion was stopped. Today, pt with edematous, erythematous LUE. As per pt, she is prone to thrombophlebitis. Pt for NGT removal this AM by surgery, once out will replete K +. Otherwise, this AM, pt without RICKS, fever, chills, SOB. She has been OOB and has flatus. OBJECTIVE: Vital Signs Period Temp Pulse Resp BP Sys/Kovacs Pulse Ox Last 24 Hr 97.3 F-98.4 F 67-84 18-18 108-130/59-84 97-97 GENERAL: The patient is sitting comfortably. Awake, alert, and fully oriented, in no acute distress. HEAD: +erythematous facial rash - malar . improved from yesterday EYES: PERRL, extraocular movements intact, sclera anicteric, conjunctiva clear. ENT: Ears normal, nares patent, oropharynx clear without exudates, moist mucous membranes. +NGT draining dark yellow fluid NECK: Trachea midline, supple. LUNGS: Breath sounds equal, clear to auscultation bilaterally, no wheezes, no crackles, no accessory muscle use. HEART: Regular rate and rhythm, S1, S2 without murmur, rub or gallop. ABDOMEN: Soft, obese, nontender, nondistended,, no guarding, no rebound. + intact neal over surgical site, without erythema or edema. EXTREMITIES: 2+ posterior tibial pulses, warm, well-perfused, no edema. NEUROLOGICAL: Cranial nerves II through XII grossly intact. Normal speech PSYCH: Positive mood, normal affect. SKIN: Warm, dry, normal turgor. +erythematous facial rash - improved from yesterday Laboratory Results - last 24 hr 08/31/17 08/31/17 08/31/17 07:45 07:45 12:22 WBC 5.8 RBC 3.65 Hgb 11.3 Hct 32.8 MCV 90.0 MCH 31.0 MCHC 34.4 RDW 12.8 Plt Count 180 D MPV 8.6 Neutrophils % 75.8 Lymphocytes % 14.8 Monocytes % 7.5 Eosinophils % 1.4 Basophils % 0.5 Sodium 140 Potassium 3.2 L Chloride 105 Carbon Dioxide 24 Anion Gap 11 BUN 8 Creatinine 0.3 L Random Glucose 86 Calcium 7.8 L Magnesium 1.8 08/31/17 21:50 WBC RBC Hgb Hct MCV MCH MCHC RDW Plt Count MPV Neutrophils % Lymphocytes % Monocytes % Eosinophils % Basophils % Sodium 138 Potassium 3.2 L Chloride 103 Carbon Dioxide 22 Anion Gap 13 BUN 5 L Creatinine 0.2 L Random Glucose 77 Calcium 7.8 L Magnesium Active Medications Generic Name Dose Route Start Last Admin Trade Name Freq PRN Reason Stop Dose Admin Acetaminophen 325 mg 08/31/17 21:10 Tylenol - NR Q4H PRN PAIN 1-6 Diphenhydramine HCl 12.5 mg 08/29/17 14:47 Benadryl Injection - IVPUSH ONCE PRN FOR ITCHING Heparin Sodium (Porcine) 5,000 unit 08/29/17 22:00 08/31/17 22:39 Heparin - SQ Not Given BID TAMMY Lactated Ringer's 1,000 mls @ 100 mls/hr 08/31/17 16:11 08/31/17 16:45 Lactated Ringers Solution IV 100 mls/hr ASDIR TAMMY Administration Ketorolac Tromethamine 30 mg 08/31/17 15:30 Toradol Injection - IVPUSH 09/02/17 15:29 Q6H PRN PAIN LEVEL 7 - 10 Oxycodone HCl 5 mg 08/31/17 17:10 Roxicodone - PO Q4H PRN PAIN 1-6 Prochlorperazine Edisylate 5 mg 08/30/17 15:45 Compazine Injection - IVPB Q8H PRN NAUSEA AND/OR VOMITING ASSESSMENT/PLAN: 62 y/o F with hx cutaneous lupus, abdominal surgeries, who presented with abdominal pain and nausea. Pt admitted for SBO. #SBO likely 2/2 adhesions from past abdominal surgeries (cholecystectomy, bladder suspension surgery, hernia repair)-improving -s/p ex lap, lysis of adhesions, release of intestinal obstruction, repair of abdom wall - PO Day 3 -IV LR 125 cc/hr ; will give 0.9 NS +40 mEq 125 cc/hr x 1 bag. then continue with LR -Pain control - Toradol 30mg IVP q6h PRN, dilaudid 1mg IVPB q6h PRN -however dilaudid on back order. percocet q4h PRN. -Nausea- avoid zofran as Qtc prolonged (480) - use compazine 5mg IVPB q8h PRN -NGT removed; pt started on full liquid diet -Encourage OOB -chest physiotherapy BID #h/o cutaneous lupus -worsening erythematous facial rash, however w/o complaint -holding home meds as pt still NPO -at home hydroxychloroquine 100mg PO BID #asthma- controlled -holding home meds (singulair 10mg PO qHS) #hypokalemia -today 3.2 -0.9 NS + 40mEq 125 cc/hr x 1 bag, then to continue on LR 125 cc/hr. - unable to attain IV access -started on KCl 40mEq liquid -will continue to follow level #F/E/N IV LR 125 cc/hr Continue to monitor lytes full liquid diet, advance as tolerated #PPX DVT: hep SQ 5000 BID #Dispo -continued monitoring on med-surg; post-op care -will start d/c planning Visit type - Emergency Visit Emergency Visit: No - New Patient This patient is new to me today: No - Critical Care Critical Care patient: No
[2017-09-01] MEDS: HEPARIN NA (PORCINE) 5,000 UNITS/ML 1ML VIAL SQ SCH ×2 (10:35→21:16)
[2017-09-01] MEDS ORDERED: POTASSIUM CHLORIDE 40 MEQ in SODIUM CHLORIDE 1,000 ML IVPB ONE (11:50)
--- NOTE | 2017-09-01 15:43 | PN ---
Progress Note, Physician - Current Medication List Current Medications: Active Medications Acetaminophen (Tylenol -) 325 mg NR Q4H PRN PRN Reason: PAIN 1-6 Diphenhydramine HCl (Benadryl Injection -) 12.5 mg IVPUSH ONCE PRN PRN Reason: FOR ITCHING Heparin Sodium (Porcine) (Heparin -) 5,000 unit SQ BID TAMMY Last Admin: 09/01/17 10:35 Dose: Not Given Potassium Chloride 40 meq/ (Sodium Chloride) 1,020 mls @ 125 mls/hr IVPB ONCE ONE Stop: 09/01/17 19:59 Lactated Ringer's (Lactated Ringers Solution) 1,000 ml in 1,000 mls @ 125 mls/ hr IV ASDIR TAMMY Ketorolac Tromethamine (Toradol Injection -) 30 mg IVPUSH Q6H PRN PRN Reason: PAIN LEVEL 7 - 10 Stop: 09/02/17 15:29 Oxycodone HCl (Roxicodone -) 5 mg PO Q4H PRN PRN Reason: PAIN 1-6 Prochlorperazine Edisylate (Compazine Injection -) 5 mg IVPB Q8H PRN PRN Reason: NAUSEA AND/OR VOMITING - Objective Vital Signs: Vital Signs Temperature 98.1 F 09/01/17 14:46 Pulse Rate 72 09/01/17 14:46 Respiratory Rate 18 09/01/17 14:46 Blood Pressure 105/63 09/01/17 14:46 O2 Sat by Pulse Oximetry (%) 97 08/31/17 21:00 Labs: CBC, BMP 09/01/17 06:00 08/31/17 21:50 INR, PTT INR 1.02 (0.82-1.09) 08/27/17 07:00 Problem List - Problems (1) Small bowel obstruction Code(s): K56.609 - UNSP INTESTNL OBST, UNSP TO PARTIAL VERSUS COMPLETE OBST (2) Abdominal pain Code(s): R10.9 - UNSPECIFIED ABDOMINAL PAIN Qualifiers: Abdominal location: lower abdomen, unspecified Qualified Code(s): R10.30 - Lower abdominal pain, unspecified Assessment/Plan Surgery: Patient is comfortable. She is passing flatus. Wound is clean, Abdomen is soft and not tender. NG tube is removed. Resume feeding. Start clear liquids.
[2017-09-01] MEDS ORDERED: POTASSIUM CHLORIDE ORAL LIQUID 20 MEQ/15 ML PO ONE (15:53)
[2017-09-01] MEDS ORDERED: LACTATED RINGERS SOLUTION 1,000 ML/1,000 ML INFUS.BAG IV SCH (20:00)
--- NOTE | 2017-09-01 20:14 | PN ---
Teaching Attending Note Name of Resident: Sofy Jay ATTENDING PHYSICIAN STATEMENT I saw and evaluated the patient. I reviewed the resident's note and discussed the case with the resident. I agree with the resident's findings and plan as documented. SUBJECTIVE: OBJECTIVE: Vital Signs Temperature 98.4 F 09/01/17 19:00 Pulse Rate 71 09/01/17 19:00 Respiratory Rate 18 09/01/17 19:00 Blood Pressure 136/69 09/01/17 19:00 O2 Sat by Pulse Oximetry (%) 97 09/01/17 09:00 CBCD WBC 5.8 K/mm3 (4.0-10.0) 08/31/17 07:45 RBC 3.65 M/mm3 (3.60-5.2) 08/31/17 07:45 Hgb 11.3 GM/dL (10.7-15.3) 08/31/17 07:45 Hct 32.8 % (32.4-45.2) 08/31/17 07:45 MCV 90.0 fl (80-96) 08/31/17 07:45 MCHC 34.4 g/dl (32.0-36.0) 08/31/17 07:45 RDW 12.8 % (11.6-15.6) 08/31/17 07:45 Plt Count 180 K/MM3 (134-434) D 08/31/17 07:45 MPV 8.6 fl (7.5-11.1) 08/31/17 07:45 CMP Sodium 138 mmol/L (136-145) 08/31/17 21:50 Potassium 3.2 mmol/L (3.5-5.1) L 08/31/17 21:50 Chloride 103 mmol/L (98-107) 08/31/17 21:50 Carbon Dioxide 22 mmol/L (21-32) 08/31/17 21:50 Anion Gap 13 (8-16) 08/31/17 21:50 BUN 5 mg/dL (7-18) L 08/31/17 21:50 Creatinine 0.2 mg/dL (0.55-1.02) L 08/31/17 21:50 Creat Clearance w eGFR > 60 (>60) 08/30/17 06:25 Random Glucose 77 mg/dL (74-106) 08/31/17 21:50 Calcium 7.8 mg/dL (8.5-10.1) L 08/31/17 21:50 Total Bilirubin 0.5 mg/dL (0.2-1.0) D 08/30/17 06:25 AST 17 U/L (15-37) 08/30/17 06:25 ALT 13 U/L (12-78) 08/30/17 06:25 Alkaline Phosphatase 33 U/L (45-117) L 08/30/17 06:25 Total Protein 5.2 g/dl (6.4-8.2) L 08/30/17 06:25 Albumin 2.7 g/dl (3.4-5.0) L 08/30/17 06:25 Current Medications Generic Name Dose Route Start Last Admin Trade Name Freq PRN Reason Stop Dose Admin Acetaminophen 325 mg 08/31/17 21:10 Tylenol - NR Q4H PRN PAIN 1-6 Diphenhydramine HCl 12.5 mg 08/29/17 14:47 Benadryl Injection - IVPUSH ONCE PRN FOR ITCHING Heparin Sodium (Porcine) 5,000 unit 08/29/17 22:00 09/01/17 10:35 Heparin - SQ Not Given BID TAMMY Lactated Ringer's 1,000 ml in 1,000 mls @ 125 mls/hr 09/01/17 20:00 Lactated Ringers Solution IV ASDIR TAMMY Ketorolac Tromethamine 30 mg 08/31/17 15:30 Toradol Injection - IVPUSH 09/02/17 15:29 Q6H PRN PAIN LEVEL 7 - 10 Oxycodone HCl 5 mg 08/31/17 17:10 Roxicodone - PO Q4H PRN PAIN 1-6 Prochlorperazine Edisylate 5 mg 08/30/17 15:45 Compazine Injection - IVPB Q8H PRN NAUSEA AND/OR VOMITING Home Medications Medication Instructions Recorded Hydroxychloroquine Sulfate 100 mg PO BID 08/26/17 [Plaquenil] Metformin HCl 850 mg PO BID 08/26/17 Montelukast Sodium [Singulair] 10 mg PO HS 08/26/17 ASSESSMENT AND PLAN: 62 y/o lady with h/o cutaneous lupus , and few abdominal surgeries who presented with abd pain , N/V and was found to have SBO # SBO :due to adhesions. POD 3 s/p adhesions lysis - IVF - monitor electrolytes and replete as needed - possible removal of NGT today - off [employer]. allergic to morphine, dilaudid not available per pharmacy . will add toradol and percocet DVT px
[2017-09-02] MEDS: HEPARIN NA (PORCINE) 5,000 UNITS/ML 1ML VIAL SQ SCH (09:31)
--- NOTE | 2017-09-02 09:35 | PN ---
Teaching Attending Note Name of Resident: Sofy Jay ATTENDING PHYSICIAN STATEMENT I saw and evaluated the patient. I reviewed the resident's note and discussed the case with the resident. I agree with the resident's findings and plan as documented. SUBJECTIVE: OBJECTIVE: Vital Signs Temperature 98.4 F 09/02/17 05:00 Pulse Rate 75 09/02/17 05:00 Respiratory Rate 18 09/02/17 05:00 Blood Pressure 128/71 09/02/17 05:00 O2 Sat by Pulse Oximetry (%) 99 09/01/17 21:25 CBCD WBC 5.8 K/mm3 (4.0-10.0) 08/31/17 07:45 RBC 3.65 M/mm3 (3.60-5.2) 08/31/17 07:45 Hgb 11.3 GM/dL (10.7-15.3) 08/31/17 07:45 Hct 32.8 % (32.4-45.2) 08/31/17 07:45 MCV 90.0 fl (80-96) 08/31/17 07:45 MCHC 34.4 g/dl (32.0-36.0) 08/31/17 07:45 RDW 12.8 % (11.6-15.6) 08/31/17 07:45 Plt Count 180 K/MM3 (134-434) D 08/31/17 07:45 MPV 8.6 fl (7.5-11.1) 08/31/17 07:45 CMP Sodium 138 mmol/L (136-145) 08/31/17 21:50 Potassium 3.2 mmol/L (3.5-5.1) L 08/31/17 21:50 Chloride 103 mmol/L (98-107) 08/31/17 21:50 Carbon Dioxide 22 mmol/L (21-32) 08/31/17 21:50 Anion Gap 13 (8-16) 08/31/17 21:50 BUN 5 mg/dL (7-18) L 08/31/17 21:50 Creatinine 0.2 mg/dL (0.55-1.02) L 08/31/17 21:50 Creat Clearance w eGFR > 60 (>60) 08/30/17 06:25 Random Glucose 77 mg/dL (74-106) 08/31/17 21:50 Calcium 7.8 mg/dL (8.5-10.1) L 08/31/17 21:50 Total Bilirubin 0.5 mg/dL (0.2-1.0) D 08/30/17 06:25 AST 17 U/L (15-37) 08/30/17 06:25 ALT 13 U/L (12-78) 08/30/17 06:25 Alkaline Phosphatase 33 U/L (45-117) L 08/30/17 06:25 Total Protein 5.2 g/dl (6.4-8.2) L 08/30/17 06:25 Albumin 2.7 g/dl (3.4-5.0) L 08/30/17 06:25 Current Medications Generic Name Dose Route Start Last Admin Trade Name Freq PRN Reason Stop Dose Admin Acetaminophen 325 mg 08/31/17 21:10 Tylenol - NR Q4H PRN PAIN 1-6 Diphenhydramine HCl 12.5 mg 08/29/17 14:47 Benadryl Injection - IVPUSH ONCE PRN FOR ITCHING Heparin Sodium (Porcine) 5,000 unit 08/29/17 22:00 09/02/17 09:31 Heparin - SQ Not Given BID TAMMY Lactated Ringer's 1,000 ml in 1,000 mls @ 125 mls/hr 09/01/17 20:00 09/01/17 21:15 Lactated Ringers Solution IV Not Given ASDIR TAMMY Ketorolac Tromethamine 30 mg 08/31/17 15:30 Toradol Injection - IVPUSH 09/02/17 15:29 Q6H PRN PAIN LEVEL 7 - 10 Oxycodone HCl 5 mg 08/31/17 17:10 Roxicodone - PO Q4H PRN PAIN 1-6 Prochlorperazine Edisylate 5 mg 08/30/17 15:45 Compazine Injection - IVPB Q8H PRN NAUSEA AND/OR VOMITING Home Medications Medication Instructions Recorded Hydroxychloroquine Sulfate 100 mg PO BID 08/26/17 [Plaquenil] Metformin HCl 850 mg PO BID 08/26/17 Montelukast Sodium [Singulair] 10 mg PO HS 08/26/17 ASSESSMENT AND PLAN: 62 y/o lady with h/o cutaneous lupus , and few abdominal surgeries who presented with abd pain , N/V and was found to have SBO # SBO :due to adhesions. POD 3 s/p adhesions lysis - IVF - monitor electrolytes and replete as needed - possible removal of NGT today - off [employer]. allergic to morphine, dilaudid not available per pharmacy . will add toradol and percocet
--- NOTE | 2017-09-02 10:23 | PN ---
Progress Note, Physician - Current Medication List Current Medications: Active Medications Acetaminophen (Tylenol -) 325 mg NR Q4H PRN PRN Reason: PAIN 1-6 Diphenhydramine HCl (Benadryl Injection -) 12.5 mg IVPUSH ONCE PRN PRN Reason: FOR ITCHING Heparin Sodium (Porcine) (Heparin -) 5,000 unit SQ BID [facility] Last Admin: 09/02/17 09:31 Dose: Not Given Lactated Ringer's (Lactated Ringers Solution) 1,000 ml in 1,000 mls @ 125 mls/ hr IV ASDIR [facility] Last Admin: 09/01/17 21:15 Dose: Not Given Ketorolac Tromethamine (Toradol Injection -) 30 mg IVPUSH Q6H PRN PRN Reason: PAIN LEVEL 7 - 10 Stop: 09/02/17 15:29 Oxycodone HCl (Roxicodone -) 5 mg PO Q4H PRN PRN Reason: PAIN 1-6 Prochlorperazine Edisylate (Compazine Injection -) 5 mg IVPB Q8H PRN PRN Reason: NAUSEA AND/OR VOMITING - Objective Vital Signs: Vital Signs Temperature 98.4 F 09/02/17 05:00 Pulse Rate 75 09/02/17 05:00 Respiratory Rate 18 09/02/17 05:00 Blood Pressure 128/71 09/02/17 05:00 O2 Sat by Pulse Oximetry (%) 99 09/01/17 21:25 Labs: CBC, BMP 09/01/17 06:00 08/31/17 21:50 INR, PTT INR 1.02 (0.82-1.09) 08/27/17 07:00 Problem List - Problems (1) Small bowel obstruction Code(s): K56.609 - UNSP INTESTNL OBST, UNSP TO PARTIAL VERSUS COMPLETE OBST (2) Abdominal pain Code(s): R10.9 - UNSPECIFIED ABDOMINAL PAIN Qualifiers: Abdominal location: lower abdomen, unspecified Qualified Code(s): R10.30 - Lower abdominal pain, unspecified Assessment/Plan Surgery: Patient has tolerated diet. Abdomen is soft, She is having bowel movements and is tolerating diet. Plan : discharge home. She plans to go to [place], where her neal will be removed, by her primary physician.
[2017-09-02 13:57] VITALS: BP 119/75; PULSE 70; TEMP 98.1
--- NOTE | 2017-09-02 17:43 | DS ---
Physical Exam: SUBJECTIVE: Patient seen and examined at bedside. States that she feels well and is ready to go home. Voiding freely, had two BM this AM. Denies RICKS, fever, chills, SOB, N/V, abdominal pain, or changes in urinary or bowel function. OBJECTIVE: Vital Signs Period Temp Pulse Resp BP Sys/Kovacs Pulse Ox Last 24 Hr 98 F-98.4 F 69-75 18-18 114-136/69-75 96-99 PHYSICAL EXAM GENERAL: The patient is awake, alert, and fully oriented, in no acute distress. HEAD: Normal with no signs of trauma. EYES: PERRL, extraocular movements intact, sclera anicteric, conjunctiva clear. ENT: Ears normal, nares patent, oropharynx clear without exudates, moist mucous membranes. NECK: Trachea midline, full range of motion, supple. LUNGS: Breath sounds equal, clear to auscultation bilaterally, no wheezes, no crackles, no accessory muscle use. HEART: Regular rate and rhythm, S1, S2 without murmur, rub or gallop. ABDOMEN: Soft, nontender, nondistended, normoactive bowel sounds, no guarding, no rebound. + neal intact, without erythema or edema EXTREMITIES: 2+ dorsalis pedis pulses, warm, well-perfused, no edema. NEUROLOGICAL: Cranial nerves II through XII grossly intact. Normal speech PSYCH: Normal mood, normal affect. SKIN: Warm, dry, normal turgor, no rashes LABS Laboratory Tests 08/31/17 08/31/17 07:45 07:45 WBC 5.8 Hgb 11.3 Hct 32.8 Plt Count 180 D Sodium 140 Potassium 3.2 L Chloride 105 Carbon Dioxide 24 BUN 8 Creatinine 0.3 L RADIOLOGY 08/26/17: CTAP: distal SBO in apparent transition zone in RLQ. associated small amount of mesenteric fluid accum as well as small amount of perihepatic free fluid. small amount of localized area between L hepatic lobe and anterior abd wall likely representing a bowel loop. surgicla mesh seen along anterior abdominal wall centered along midline. moderate hiatal hernia - paraesophageal. s/p cholecystectomy . slight CBD dilation which may be physiologic. nonspecific 0.8cm R hepatic lobe hypodense focus. 08/26/17 CXR: NGT visualized in stomach 08/27/17: AXR: abdominal distension noted. no acute pathology 08/28/17: AXR: NGT with tip in stomach, SBO. 08/29/17: AXR persistent SBO HOSPITAL COURSE: Date of Admission:08/26/17 Date of Discharge: 09/02/17 Admit diagnosis: small bowel obstruction 62 y/o F with hx cutaneous lupus, past hx abdominal surgeries cholecystectomy, bladder suspension surgery, hernia repair, who presented to the ED with abdominal pain and nausea, found to have small bowel obstruction on CTAP done on 08/26/17. While pt was on the floor, she was initially managed with NGT to aid in decompression, and then underwent an ex lap of lysis of adhesions, release of intestinal obstruction and repair of abdominal wall. Shortly after, pt had NGT removed and continued on pain control, IVF. Initially with HIDE CURER pump, and when her pain tolerance improved, with toradol 30mg IVP q6h PRN. Pt OOB, with BMs, tolerating diet. Voiding freely. On d/c, feeling well, in good spirits. To follow in [place] with her primary care in a week to remove neal. Minutes to complete discharge: 32 Discharge Summary Reason For Visit: SMALL BOWEL OBSTRUCTION Condition: Stable - Instructions Diet, Activity, Other Instructions: You were recently in the hospital due to nausea, vomiting and abdominal pain. You were found to have a small bowel obstruction and underwent a surgery to have it repaired. Please increase activity gradually and try to avoid lifting heavy weights. Please go to your primary care doctor in a week to have your neal removed. You may take Tylenol or Ibuprofen over the counter for your pain. We also recommend lemon to help you with nausea. You may continue your home medications. If you develop severe abdominal pain, abnormal drainage from the wound site, or chest pain, please go to the hospital. We hope you feel better soon. Disposition: HOME - Home Medications Comprehensive Discharge Medication List: Ambulatory Orders Hydroxychloroquine Sulfate [Plaquenil] 100 mg PO BID 08/26/17 Metformin HCl 850 mg PO BID 08/26/17 Montelukast Sodium [Singulair] 10 mg PO HS 08/26/17 This patient is new to me today: No Emergency Visit: No Critical Care patient: No - Discharge Referral Referred to [facility] No
== END 2017-09-02 14:42 | disposition home or self-care (01) | DRG 227 ==
LOC: JER 11:04 → JERBED 18:04 → OBSVTOIN 18:12 → J7W 21:49
PROVIDERS: ADMIT Internal Medicine; ATTEND Internal Medicine
PROC: 0D9670Z Drainage of Stomach with Drainage Device, Via Natural or Artificial Opening (ICD-10-PCS; 2017-08-26)
PROC: 0DNW0ZZ Release Peritoneum, Open Approach (ICD-10-PCS; 2017-08-29)
PROC: 0WUF0KZ Supplement Abdominal Wall with Nonautologous Tissue Substitute, Open Approach (ICD-10-PCS; principal; 2017-08-29 12:00)
DX: K56.50 Intestinal adhesions [bands], unspecified as to partial versus complete obstruction (principal); M19.90 Unspecified osteoarthritis, unspecified site; J45.909 Unspecified asthma, uncomplicated; E09.9 Drug or chemical induced diabetes mellitus without complications; R10.30 Lower abdominal pain, unspecified; E87.6 Hypokalemia; M50.31 Other cervical disc degeneration, high cervical region; K44.9 Diaphragmatic hernia without obstruction or gangrene; L93.1 Subacute cutaneous lupus erythematosus; L71.9 Rosacea, unspecified; Z88.0 Allergy status to penicillin
CPT/HCPCS: 36415; 71045-TC-FY; 74019-TC-FY; 74177-TC; 80048; 80053; 81003; 82962; 83605; 83690; 83735; 84100; 85025; 85027; 85610; 86850; 86900; 86901; 86922; 93005; 93010; 94760; 99285-25; G0378; J0131; J1644; J7030